=== PATIENT | female | born 2005 | race Two or more races ===

== ENCOUNTER 2025-04-02 11:17 | Outpatient (OUT) | payer OTHER, SELFPAY ==
[2025-04-02 11:53] LABS: Basophils Percent Auto 0.5 % (0.2-2.0); Eosinophils Absolute Auto 0.1 10^3/uL (0.0-0.7); Eosinophils Percent Auto 1.2 % (0.9-7.0); Hematocrit 40.6 % (36.0-48.0); Hemoglobin 13.8 g/dL (12.0-16.0); Immature Granulocytes Abs Auto 0.02 10^3/uL (0.00-0.03); Immature Granulocytes Pct Auto 0.3 % (0.0-0.5); Lymphocytes Absolute Auto 1.9 10^3/uL (1.2-3.8); Lymphocytes Percent Auto 28.9 % (20.5-60.0); Mean Corpuscular Hemoglobin 29.9 pg (26.7-34.0); Mean Corpuscular Volume 88.1 fL (81.0-99.0); Mean Platelet Volume 8.7 fL (9.5-13.5); Monocytes Absolute Auto 0.5 10^3/uL (0.3-0.8); Monocytes Percent Auto 7.2 % (1.7-12.0); Neutrophils Absolute Auto 4.1 10^3/uL (1.4-6.5); Neutrophils Percent Auto 61.9 % (43.0-75.0); Platelet Count 245 10^3/uL (150-450); Red Blood Count 4.61 10^6/uL (4.20-5.40); Red Cell Distribution Width 12.7 % (11.0-15.0); White Blood Count 6.6 10^3/uL (4.0-11.0)
[2025-04-02 11:54] LABS: BOX Test Reference Lab UNITY; BOX Test Sent Out UNITY
[2025-04-02 12:04] LABS: Amphetamine Screen Urine NEGATIVE (NEGATIVE); Barbiturates Screen Urine NEGATIVE (NEGATIVE); Benzodiazepines Screen Urine NEGATIVE (NEGATIVE); Buprenorphine Screen Urine NEGATIVE (NEGATIVE); Cannabinoid Screen Urine NEGATIVE (NEGATIVE); Cocaine Screen Urine NEGATIVE (NEGATIVE); Methadone Screen Urine NEGATIVE (NEGATIVE); Methamphetamines Screen Urine NEGATIVE (NEGATIVE); Opiate Screen Urine NEGATIVE (NEGATIVE); Oxycodone Screen Urine NEGATIVE (NEGATIVE); Phencyclidine Screen Urine NEGATIVE (NEGATIVE); Tricyclic Antidepressant Urine NEGATIVE (NEGATIVE)
[2025-04-02 12:13] LABS: Estimated Average Glucose 105 mg/dL; Glycohemoglobin A1C 5.3 % (4.5-6.2)
[2025-04-03 05:07] LABS: HIV Ab/p24 Ag Screen Non Reactive (Non Reactive)
[2025-04-03 06:08] LABS: HBsAg Screen Negative (Negative); HCV Ab Non Reactive (Non Reactive)
[2025-04-03 08:09] LABS: Rubella Antibodies, IgG 4.17 index (Immune >0.99)
[2025-04-03 11:08] LABS: Rapid Plasma Reagin, Quant Non Reactive titer (NonRea<1:1)
== END 2025-04-02 11:18 | disposition home or self-care (01) ==
LOC: LAB 11:25
PROVIDERS: PCP Obstetrics & Gynecology; Visit Provider Obstetrics & Gynecology
DX: Z34.01 Encounter for supervision of normal first pregnancy, first trimester (principal); Z36.0 Encounter for antenatal screening for chromosomal anomalies; N92.6 Irregular menstruation, unspecified
CPT/HCPCS: 36415; 80307; 83036; 85025; 86592; 86762; 86803; 86850; 86900; 86901; 87086; 87340; 87389

== ENCOUNTER 2025-05-18 20:04 | Outpatient (REF) | payer OTHER, SELFPAY ==
[2025-05-24 15:08] LABS: Age Gdln ACOG Testing Note (.); IGP, rfx Aptima HPV ASCU Note (.)
== END 2025-05-18 20:05 | disposition home or self-care (01) ==
LOC: LAB 20:04
PROVIDERS: Visit Provider Physician Assistant
DX: Z01.419 Encounter for gynecological examination (general) (routine) without abnormal findings (principal)
CPT/HCPCS: 88175

== ENCOUNTER 2025-08-11 14:09 | Outpatient (OUT) | payer OTHER, SELFPAY ==
--- NOTE | 2025-08-11 14:16 | US_ITS ---
The [address] [address] Patient Name: AYUSH MCCANN MRN: [id number] date: 2005 Sex: F Assigned Patient Location: Current Patient Location: Accession/Order Number: [id number] Exam Date: 08/11/2025 14:18 Report Date: 08/12/2025 09:12 At the request of: TC DE PAZ Procedure: US OB growth ULTRASOUND OB GROWTH COMPARISON: None CLINICAL DATA: Inconsistent size There is a single live intrauterine gestation in cephalic presentation. There is cardiac and somatic activity with heart rate of 144 bpm. The amniotic fluid index measures 16.7 cm which is in upper normal range. The placenta is posterior. The following measurements were obtained: Biparietal diameter 8.1 cm 32 weeks 2 days 84% Head circumference 29.7 cm 32 weeks 6 days 74% Abdominal circumference 25.8 cm 29 weeks 6 days 23% Femur length 5.6 cm 29 weeks 3 days 9%* The composite ultrasound age based on these measurements is 31 weeks 1 day +/- 2 weeks 1 day. The estimated date of delivery is October 12, 2025. The estimated weight is 3 lbs. 6 oz. +/- 8 ounces (22%). US/US OB growth IMPRESSION: SINGLE LIVE INTRAUTERINE GESTATION WITH ULTRASOUND AGE OF 31 WEEKS 1 DAY. BIOMETRICS, DESCRIBED. Impression dictated by: Bhargavi Russo M.D. 08/12/2025 9:12 AM Dictation Location: [place] [address] Electronically authenticated by: [id number] Y Date: 08/12/2025 09:12
== END 2025-08-11 14:10 | disposition home or self-care (01) ==
LOC: US 14:10
PROVIDERS: Visit Provider Nurse Practitioner Family
DX: O26.843 Uterine size-date discrepancy, third trimester (principal); Z3A.31 31 weeks gestation of pregnancy
CPT/HCPCS: 76816

== ENCOUNTER 2025-09-15 20:24 | Outpatient (REF) | payer OTHER, SELFPAY ==
--- OUTSIDE RECORDS SUMMARY | 2025-09-02 08:20 | XMS_ITS | Encounter Summary ---
Author Organization [facility] Address [address] [place] [address] Care Team Providers Care Big Machine Consultant Name Role Phone Renetta Poon MD Primary Care Provider [phone] Lilibeth Reyes BARRER AND TACKER Unavailable [phone] Reason for Visit * ReasonCommentsRoutine Visit Encounter Details DateTypeDepartmentCare Team (Latest Contact Info)Qrpwvsjuoez12/23/2025 9:20 AM EDTRoutine [facility] [address] [place] [address] Dayna Freed PA [address] [facility] [place] [address] 34 weeks gestation of ([facility]); Third trimester ([facility]); Gastroesophageal reflux in ([facility]) Social History Tobacco UseTypesPacks/DayYears UsedDateSmoking Tobacco: NeverSmokeless Tobacco: NeverAlcohol UseStandard Drinks/WeekCommentsNever0 (1 standard drink = 0.6 oz pure alcohol)AUDIT-CAnswerDate RecordedQ1: How often do you have a drink containing alcohol?Never03/18/2024Q2: How many drinks containing alcohol do you have on a typical day when you are drinking?Patient does not drink03/18/2024Q3: How often do you have six or more drinks on one occasion?Never03/18/2024HQ-2 AnswerDate RecordedPatient Health Questionnaire-2 Lvvbm925 Estimated Date of BfjaxbayRbegxyvyVyg43/04/2025Based on UltrasoundSex and Gender InformationValueDate RecordedSex Assigned at BirthNot on fileLegal SexFemale 01/23/2023 6:34 PM EDTGender IdentityNot on fileSexual OrientationNot on file documented as of this encounter Last Filed Vital Signs Vital SignReadingTime TakenCommentsBlood Pnybhexj145/6010 9:38 AM EDT Pulse--Temperature--Respiratory Rate--Oxygen Saturation--Inhaled Oxygen Concentration--Splmrv95.6 kg (149 lb 1.9 oz)09/02/2025 9:38 AM EDTHeight--Body Mass Index23.36003/18/2024 3:59 PM EDTdocumented in this encounter Progress Notes * LUCHO Escobedo - 09/02/2025 9:20 AM EDT Reason for Appointment: Patient ID: Teresita Brand is a 20 y.o. female who presents for Routine Visit Patient presents today for Return OB appointment. MEDICATIONS Current Outpatient Medications Medication Instructions omeprazole (PRILOSEC) 20 mg, Oral, Daily before breakfast, Do not crush or chew. MV-Min-Fe Fum-FA-DHA ( 1 PO) Take by mouth promethazine (PHENERGAN) 12.5 mg, Oral, Every 6 hours PRN, Take 1 tablet by mouth every 6 hours as needed for nausea. ALLERGIES Allergies Allergen Reactions Bee Venom Anaphylaxis and Swelling PROBLEMS Active Ambulatory Problems Diagnosis Date Noted Iron deficiency anemia during ([facility]) 11/03/2023 Irregular menses 11/26/2023 Chronic fatigue 03/18/2024 Hypokalemia 03/18/2024 Resolved Ambulatory Problems Diagnosis Date Noted Disorder of breast 11/26/2023 Low lying placenta nos or without hemorrhage, second trimester ([facility]) 09/19/2023 Short interval between pregnancies affecting in first trimester, antepartum ([facility]) 08/02/2023 28 weeks gestation of ([facility]) 11/06/2023 (normal spontaneous vaginal delivery) ([facility]) 01/22/2024 Threatened labor, third trimester ([facility]) 12/25/2023 Past Medical History: Diagnosis Date Anemia Disorder of breast, unspecified HISTORY PAST MEDICAL HISTORY SOCIAL HISTORY Past Medical History: Diagnosis Date 28 weeks gestation of ([facility]) 11/06/2023 Anemia Disorder of breast 11/26/2023 Disorder of breast, unspecified Irregular menses Low lying placenta nos or without hemorrhage, second trimester ([facility]) 09/19/2023 10/18/23 RESOLVED no further [facility] follow up 09/20/[address] [facility] [address] [place] RECOMMENDATION: 1. Anterior low-lying placenta seen on today's ultrasound. Patient denies any bleeding. 2. Pelvic rest advised. 3. Follow-up repeat evaluation of placental location between 32-34 weeks gestation at our [facility] remote office. 4. InCase (normal spontaneous vaginal delivery) ([facility]) 01/22/2024 Short interval between pregnancies affecting in first trimester, antepartum ([facility]) 08/02/2023 08/02/23 Her baby will be a year old the end of July 2022 Breast fed for 9 months Threatened labor, third trimester ([facility]) 12/25/2023 Celestone given 12/24/23 & 12/25/23 Social History Tobacco Use Smoking status: Never Smokeless tobacco: Never Vaping Use Vaping status: Never Used Substance Use Topics Alcohol use: Never Drug use: Not on file FAMILY HISTORY Family History Problem Relation Name Age of Onset Depression Mother Heart disease Father Hypertension Father Hypertension Maternal Grandfather Heart disease Maternal Grandfather SURGICAL HISTORY Past Surgical History: Procedure Laterality Date INNER EAR SURGERY ear tubes as a baby TYMPANOSTOMY TUBE PLACEMENT as a child REVIEW OF SYSTEMS Review of Systems: Review of Systems Constitutional: Negative. HENT: Negative. Eyes: Negative. Respiratory: Negative. Cardiovascular: Negative. Gastrointestinal: Negative. Genitourinary: Negative. Musculoskeletal: Negative. Skin: Negative. Neurological: Negative. All other systems reviewed and are negative. Hematological: Negative. Endocrine: Negative. Allergic/Immunologic: Negative. OBJECTIVE Objective: Physical Exam Constitutional: Appearance: Normal appearance. She is well-developed and normal weight. HENT: Head: Normocephalic. Cardiovascular: Rate and Rhythm: Normal rate and regular rhythm. Pulses: Normal pulses. Pulmonary: Effort: Pulmonary effort is normal. Breath sounds: Normal breath sounds. Abdominal: General: Bowel sounds are normal. There is no distension. Palpations: Abdomen is soft. Tenderness: There is no abdominal tenderness. There is no guarding or rebound. Musculoskeletal: General: No swelling. Normal range of motion. Right lower leg: No edema. Left lower leg: No edema. Neurological: General: No focal deficit present. Mental Status: She is alert and oriented to person, place, and time. Skin: General: Skin is warm and dry. Psychiatric: Mood and Affect: Mood normal. Behavior: Behavior normal. Thought Content: Thought content normal. Judgment: Judgment normal. Vitals and nursing note reviewed. Exam conducted with a inspecting supervisor present. Vitals: Estimated body mass index is 23.22 kg/m?? as calculated from the following: Height as of 03/18/24: 5' 7 . Weight as of 08/11/25: 148 lb 4 oz. BP: Patient's last menstrual period was 12/19/2024. Assessment/Plan ICD-10-CM 1. 34 weeks gestation of ([facility]) Z3A.34 POCT urinalysis dipstick manually resulted 2. Third trimester ([facility]) Z34.93 POCT urinalysis dipstick manually resulted 3. Gastroesophageal reflux in ([facility]) O99.619 K21.9 Return OB: Patient presents today for a routine obstetrics appointment. Patient is currently 34w0d . Patient states she is doing well but has complaints of being tired due to current . Patient has verbalizes frequent movement. labor precautions was discussed/given and patient was instructed to perform kick counts three times a day. Orders Placed This Encounter Procedures POCT urinalysis dipstick manually resulted Follow Up: Patient is to return to office in 2 week for routine OB appointment. Documented by Eve Lucas LPN on behalf of: LUCHO Escobedo documented in this encounter Plan of Treatment DateTypeDepartmentCare Team (Latest Contact Info)Keddeclkgek65/12/2025 9:40 AM ESTRoutine [facility] [address] [place] [address] Dayna Freed PA [address] [facility] [place] [address] 11/01/2025 10:50 AM ESTPostpartum Visit [facility] [address] [place] [address] Michael Robles DO [address] [facility] [place] [address] documented as of this encounter Procedures Procedure NamePriorityDate/TimeAssociated DiagnosisCommentsPOCT URINALYSIS NFNSTPLVJcawaxj18/23/2025 9:49 AM EDT 34 weeks gestation of ([facility]) Third trimester ([facility]) documented in this encounter Results * (ABNORMAL) POCT urinalysis dipstick manually resulted (09/02/2025 9:49 AM EDT) ComponentValueRef RangeTest MethodAnalysis TimePerformed AtPathologist SignatureColor, UAYellowClarity, UAClearGlucose, UANegativeNegative - 2000(110) ++++ mg/dLBilirubin, UANegativeNegative - 4(70) +++ mg/dLKetones, UA PositiveNegative - 160(16) ++++ mg/dLSpec Grav, UA1.0151 - 1.03Blood, UA NegativeNegative - 50 Jose/mcLpH, UA7.05 - 9Protein, UAPositiveNegative - 2000(20) ++++ mg/dLUrobilinogen, UA1.00.2 - 12 mg/dLLeukocytes, UAPositive Negative - 500+++ Farhan/mcLNitrite, UANegativeNegative - PositiveSpecimen (Source)Anatomical Location / LateralityCollection Method / VolumeCollection TimeReceived GvyuDtyxi16/23/2025 9:49 AM EDT Narrative Authorizing ProviderResult TypeResult StatusAmy Butler HospitalOINT OF CARE TEST ENTER/EDIT ORDERABLESFinal Result documented in this encounter Visit Diagnoses Diagnosis 34 weeks gestation of ([facility]) Third trimester ([facility]) state, incidental Gastroesophageal reflux in ([facility]) documented in this encounter Care Teams Team MemberRelationshipSpecialtyStart DateEnd Date Wonderly, Renetta Davidson MD [facility] - [facility] Lilibeth Reyes NP [address] [place] [address] PCP - [facility]08/11/24documented as of this encounter
--- OUTSIDE RECORDS SUMMARY | 2025-09-15 11:10 | XMS_ITS | Encounter Summary ---
Author Organization [facility] Address [address] [place] [address] Care Team Providers Care Machine Veneer Repairer Name Role Phone Renetta Poon MD Primary Care Provider [phone] Lilibeth Reyes CIRCUIT BREAKER SUPERVISOR Unavailable [phone] Reason for Visit * ReasonCommentsRoutine Visit Encounter Details DateTypeDepartmentCare Team (Latest Contact Info)Whtwqhcixbi48/05/2025 11:10 AM ESTRoutine [facility] [address] [facility] [address] Michael Robles DO [address] [place], [place] [id number] Third trimester ([facility]); 35 weeks gestation of ([facility]) Social History Tobacco UseTypesPacks/DayYears UsedDateSmoking Tobacco: NeverSmokeless [...] on one occasion?Never03/18/2024HQ-2 AnswerDate RecordedPatient Health Questionnaire-2 Ljeuk715 Estimated Date of EtxowysjQsqpijbsPbh34/04/2025ased on UltrasoundSex and Gender InformationValueDate RecordedSex Assigned at BirthNot on fileLegal SexFemale 01/23/2023 6:34 PM EDTGender IdentityNot on fileSexual OrientationNot on file documented as of this encounter Last Filed Vital Signs Vital SignReadingTime TakenCommentsBlood Bxehdlpx074/5809/15/2025 11:12 AM EST Pulse--Temperature--Respiratory Rate--Oxygen Saturation--Inhaled Oxygen Concentration--Ioqjit21.2 kg (157 lb)09/15/2025 11:12 AM ESTHeight--Body Mass Index24.59003/18/2024 3:59 PM EDTdocumented in this encounter Plan of Treatment DateTypeDepartmentCare Team (Latest Contact Info)Odmgtocigcl27/12/2025 9:40 AM ESTRoutine [facility] [address] [address] [place] [phone] Dayna Freed PA [address] [place], [place] [id number] 11/01/2025 10:50 AM ESTPostpartum Visit [facility] [address] [address] [place] [address] Michael Robles DO [address] [place], [place] [id number] NameTypePriorityAssociated DiagnosesOrder ScheduleCULTURE, GROUP B STREP WITH SUSCEPTIBLITYLabRoutine Third trimester ([facility]) Expected: 09/15/2025, Expires: 09/15/2026documented as of this encounter Procedures Procedure NamePriorityDate/TimeAssociated DiagnosisCommentsPOCT URINALYSIS QJRHMBFHNjoqjml24/05/2025 11:13 AM EST Third trimester ([facility]) documented in this encounter Results * (ABNORMAL) POCT urinalysis dipstick manually resulted (09/15/2025 11:13 AM EST)ComponentValueRef RangeTest MethodAnalysis TimePerformed AtPathologist SignatureColor, UAYellowClarity, UAClearGlucose, UANegativeNegative - 1999(110) ++++ mg/dLBilirubin, UANegativeNegative - 4(70) +++ mg/dLKetones, UA NegativeNegative - 160(16) ++++ mg/dLSpec Grav, UA1.0201 - 1.03Blood, UA NegativeNegative - 50 Jose/mcLpH, UA6.05 - 9Protein, UANegativeNegative - 2000(20) ++++ mg/dLUrobilinogen, UA1.00.2 - 12 mg/dLLeukocytes, UA2+Negative - 500+++ Farhan/mcLNitrite, UANegativeNegative - PositiveSpecimen (Source) Anatomical Location / LateralityCollection Method / VolumeCollection Time Received OgazIxlnb55/05/2025 11:13 AM EST Narrative Authorizing ProviderResult TypeResult StatusCorey Travis DOPOINT OF CARE TEST ENTER/EDIT ORDERABLESFinal Result documented in this encounter Visit Diagnoses Diagnosis Third trimester ([facility]) state, incidental 35 weeks gestation of ([facility]) documented in this encounter Care Teams Team MemberRelationshipSpecialtyStart DateEnd Date Renetta Poon MD PCP - GeneralFamily Medicine03/19/23 Lilibeth Reyes NP [address] [place] [address] PCP - [facility]08/11/24documented as of this encounter
--- OUTSIDE RECORDS SUMMARY | 2025-09-15 20:29 | XMS_ITS | Encounter Summary ---
Author Organization [facility] Address [address] [place] [address] Care Team Providers Care Intensive Care Unit Registered Nurse Name Role Phone CleveRenetta MD Primary Care Provider [phone] Lilibeth Reyes CHARGE ENTRY SPECIALIST Unavailable [phone] Encounter Details DateTypeDepartmentCare Team (Latest Contact Info)Caotqiomnkf21/23/2025amboo flowsheet [facility] [address] [facility] [place] [address] Dayna Freed PA [address] [facility] [address] [place], [facility] Social History Tobacco UseTypesPacks/DayYears UsedDateSmoking Tobacco: NeverSmokeless [...] on one occasion?Never03/18/2024HQ-2 AnswerDate RecordedPatient Health Questionnaire-2 Mvibm905 Estimated Date of KdevxudvXgnmwkzwAwo80/04/2025Based on UltrasoundSex and Gender InformationValueDate RecordedSex Assigned at BirthNot on fileLegal SexFemale 01/23/2023 6:34 PM EDTGender IdentityNot on fileSexual OrientationNot on file documented as of this encounter Plan of Treatment DateTypeDepartmentCare Team (Latest Contact Info)Hrbccpatoau05/10/2025 9:40 AM ESTRoutine [facility] [address] [facility] [place] [address] Dayna Freed PA [address] [facility] [place] [address] 11/01/2025 10:50 AM ESTPostpartum Visit [facility] [address] [facility] [place] [address] Michael Robles DO [address] [facility] [place] [address] documented as of this encounter Visit Diagnoses Not on filedocumented in this encounter Care Teams Team MemberRelationshipSpecialtyStart DateEnd Renetta Poon MD [facility] - [facility]23 Lilibeth Reyes NP [address] [place] [address] PCP - [facility]08/11/24documented as of this encounter
--- OUTSIDE RECORDS SUMMARY | 2025-09-15 20:29 | XMS_ITS | Clinical Summary ---
Author Organization [facility] Address [address], [address] [place] [address] Care Team Providers Care Channeler Outsole Name Role Phone Renetta Poon MD Primary Care Provider [phone] Allergies Active AllergyReactionsCriticalityNoted DateCommentsBee VenomAnaphylaxisHigh 11/06/2023 Medications MedicationSigDispense QuantityRefillsLast FilledStart DateEnd DateStatus doxyLAMINE succinate (GNP SLEEP AID) 25 MG tablet Take 1 tablet by mouth nightly 30 tablet 12/22/2021ctive Additional Information Patient not taking.Reported on 01/18/2025 vitamin B-6 (PYRIDOXINE) 50 MG tablet Take 1 tablet by mouth daily 30 tablet ctive Additional Information Patient not taking.Reported on 01/18/2025 MV-Min-Fe Fum-FA-DHA ( 1 PO) Take by mouthActive ferrous sulfate (IRON 325) 325 (65 Fe) MG tablet Take 1 tablet by mouth daily (with breakfast)Active Active Problems ProblemNoted DateDiagnosed Date28 weeks gestation of /27/2023 Encounters DateTypeDepartmentCare QtgnGraklhtrxjj78/19/2025 9:25 AM EDT - 06/29/2025 11:59 PM EDTHospital Encounter [facility] [address] [id number] Discharge Disposition: Home or Self Carefrom Last 3 Months Social History Tobacco UseTypesPacks/DayYears UsedDateSmoking Tobacco: NeverSmokeless Tobacco: NeverAlcohol UseStandard Drinks/WeekCommentsNever0 (1 standard drink = 0.6 oz pure alcohol)[facility] UtilitiesAnswerDate RecordedIn the past 12 months has the electric, gas, oil, or water company threatened to shut off services in your home?No01/18/2025UDIT-CAnswerDate RecordedQ1: How often do you have a drink containing alcohol?Never11/06/2023Q2: How many drinks containing alcohol do you have on a typical day when you are drinking?Patient does not drink11/06/2023Q3: How often do you have six or more drinks on one occasion?Never11/06/2023HQ-2 AnswerDate RecordedPHQ-9 Total Ojbbn655Hunger Vital SignAnswerDate RecordedWithin the past 12 months, you worried that your food would run out before you got the money to buymore.Never true01/18/2025Within the past 12 months, the food you bought just didn't last and you didn't have money to get more.Never true01/18/2025PRAPARE - TransportationAnswerDate RecordedIn the past 12 months, has lack of transportation kept you from medical appointments or from getting medications?No01/18/2025In the past 12 months, has lack of transportation kept you from meetings, work, or from getting things needed for daily living?No01/18/2025Housing Stability Vital SignAnswerDate RecordedIn the last 12 months, was there a time when you were not able to pay the mortgage or rent on time?No01/18/2025In the past 12 months, how many times have you moved where you were living?t any time in the past 12 months, were you homeless or living in a skilled nursing (including now)?No01/18/2025Food Insecurity AnswerDate RecordedWithin the past 12 months, you worried that your food would run out before you got the money to buymore.Within the past 12 months, the food you bought just didn't last and you didn't have money to get more.Interpersonal Safety Domain Source: IP Abuse ScreeningAnswerDate RecordedRead-Only, Retired: Physical HigbzAygtyh92/27/2023Read-Only, Retired: Verbal SlgopHkszuc59/27/2023Read-Only, Retired: Emotional otpzpSbetgq45/27/2023 Read-Only, Retired: Financial KvxdfUieqyt38/27/2023Read-Only, Retired: Sexual usegqUyngyu07/27/2023CommentsNoSex and Gender InformationValueDate RecordedSex Assigned at BirthNot on fileLegal OwmOrrzzp88/10/2022 8:12 PM EST Gender IdentityNot on fileSexual OrientationNot on file Last Filed Vital Signs Vital SignReadingTime TakenCommentsBlood Smqvipqd529/6603 10:35 AM EDT Zbnwc607811/06/2023 8:55 PM UEHEntkkcwigti31.9 ??C (98.4 ??F)11/06/2023 8:55 PM ESTRespiratory Zswt323711/06/2023 8:55 PM ESTOxygen Wziiyvbgoq09%11/06/2023 8:55 PM ESTInhaled Oxygen Concentration--Sqdonb40.8 kg (123 lb)01/18/2025 10:35 AM QGKXzmbod979.7 cm (5' 8 )01/18/2025 10:35 AM EDTBody Mass Index18.703 10:35 AM EDT Plan of Treatment Health MaintenanceDue DateLast DoneCommentsHIV kqvmpy4801/10/2019HPV vaccine (1 - 3-dose series)01/10/2019Chlamydia/GC aclpmh8001/11/2020Meningococcal B vaccine (1 of 2 - Standard)2020Hepatitis C rywqlc842Pap smear01/10/2025Flu vaccine (#1)06/11/2025OVID-19 Vaccine (1 - 2023- season)2025Depression Siyzlf786001/18/2025, 01/18/2025DTaP/Tdap/Td vaccine (8 - Td or Tdap) 3101/02/2023, 05/04/2022, 05/06/2019, Additional history existsHepatitis B vekhgelQsafuelad74/12/2005, 2004, 2004Hib vaccineCompleted 02/21/2005, 2004, 2004, Additional history existsPneumococcal 0-49 years VaccineAged Out02/21/2005, 2004, 2004, Additional history existsNo longer eligible based on patient's age to complete this topic Measles,Mumps,Rubella (MMR) vcwihrdZqdgezmnuapd43/26/2019, 02/21/2005 Meningococcal (ACWY) vaccineAged Out05/06/2019No longer eligible based on patient's age to complete this topicPolio rkygxdgKcgsjzhbp63/21/2019, 2004, 2004, Additional history existsVaricella vaccineCompleted 07/01/2019, 02/21/2005Hepatitis A vaccineAged OutNo longer eligible based on patient's age to complete this topic Procedures Procedure NamePriorityDate/TimeAssociated DiagnosisCommentsGLUCOSE CHALLENGE OWPZSQZTGLEZvowqrb72/19/2025 9:31 AM EDT PBEGksgsdi97/19/2025 9:31 AM EDT from Last 3 Months Results * Glucose Challenge Gestational (06/29/2025 9:31 AM EDT)ComponentValueRef Range Test MethodAnalysis TimePerformed AtPathologist SignatureGLU ADMNGluctoshia 06/29/2025 9:31 AM [facility] LABGlucose tolerance screen 25c8487 - 135 mg/dL06/29/2025 9:31 AM [facility] Specimen (Source)Anatomical Location / LateralityCollection Method / Volume Collection TimeReceived Time06/29/2025 9:31 AM EDT06/29/2025 9:32 AM EDT Narrative Authorizing ProviderResult TypeResult StatusCorey Kelechi Robles MDHEMATOLOGY ORDERABLESFinal ResultPerforming OrganizationAddressCity/State/ZIP CodePhone Number [facility] [address] [place] [address], [facility] [phone] * (ABNORMAL) CBC (06/29/2025 9:31 AM EDT)ComponentValueRef RangeTest Method Analysis TimePerformed AtPathologist SignatureWBC7.34.5 - 13.5 k/uL06/29/2025 9:31 AM [facility] LABRBC3.66(L)3.95 - 5.11 m/uL 06/29/2025 9:31 AM [facility] HBIVsprpvfyqm57.4(L)11.9 - 15.1 g/dL06/29/2025 9:31 AM [facility] MSIGnbjduckpw34.2 (L)36.3 - 47.1 %06/29/2025 9:31 AM [facility] WVLAJF69.4 82.6 - 102.9 fL06/29/2025 9:31 AM [facility] PRDVSO60.1 25.2 - 33.5 pg06/29/2025 9:31 AM [facility] NGPSZCV51.3 28.4 - 34.8 g/dL06/29/2025 9:31 AM [facility] TVCKBR94.6 11.8 - 14.4 %06/29/2025 9:31 AM [facility] LABPlatelets 195939 - 453 k/uL06/29/2025 9:31 AM [facility] LABMPV9.2 8.1 - 13.5 MS06/29/2025 9:31 AM [facility] LABNRBC Automated0.00.0 per 100 WBC06/29/2025 9:31 AM [facility] LABSpecimen (Source)Anatomical Location / LateralityCollection Method / Volume Collection TimeReceived Time06/29/2025 9:31 AM EDT06/29/2025 9:32 AM EDT Narrative Authorizing ProviderResult TypeResult StatusCorey Kelechi Robles MDHEMATOLOGY ORDERABLESFinal ResultPerforming OrganizationAddressCity/State/ZIP CodePhone Number [facility] [address] [id number] [phone] from Last 3 Months Insurance * Guarantor: Cristian MCCANN TypeRelation to PatientDate of BirthPhone Billing AddressPersonal/EondhvNxqkhe44/25/1976 [address] [address] * Guarantor: Cristian MCCANN TypeRelation to PatientDate of BirthPhone Billing AddressPersonal/JpuohkMikjrb[birth year][address] [address] Advance Directives * Full Code (Latest Code Status on File) Date ActivatedDate BtuhkkgvgpmJaaehfvw56/27/2023 9:13 PM11/06/2023 11:39 PM Care Teams Team MemberRelationshipSpecialtyStart DateEnd Date Renetta Poon MD [address] [place] [address] PCP - GeneralFamily Nqibdowc30/27/23
--- OUTSIDE RECORDS SUMMARY | 2025-09-15 20:29 | XMS_ITS | Encounter Summary ---
Author Organization [facility] Address [address] [place] [address] Care Team Providers Care Siphoner Name Role Phone CleveRenetta MD Primary Care Provider [phone] Lilibeth Reyes OUTSOLE CASER Unavailable [phone] Encounter Details DateTypeDepartmentCare Team (Latest Contact Info)Hvzcmwtuamu79/05/2025amboo flowsheet [facility] [address] [place] [address] Michael Robles DO [address] [place], [id number] Social History Tobacco UseTypesPacks/DayYears UsedDateSmoking Tobacco: NeverSmokeless [...] on one occasion?Never03/18/2024HQ-2 AnswerDate RecordedPatient Health Questionnaire-2 Ozmko594 Estimated Date of DjeehjjmNnftfonpOaa54/04/2025Based on UltrasoundSex and Gender InformationValueDate RecordedSex Assigned at BirthNot on fileLegal SexFemale 01/23/2023 6:34 PM EDTGender IdentityNot on fileSexual OrientationNot on file documented as of this encounter Plan of Treatment DateTypeDepartmentCare Team (Latest Contact Info)Lohwtgazopv55/12/2025 9:40 AM ESTRoutine [facility] [address] [place] [address] Dayna Freed PA [address] [place] [address] 11/01/2025 10:50 AM ESTPostpartum Visit [facility] [address] [place] [place] [address] Michael Robles DO [address] [place] [address] documented as of this encounter Visit Diagnoses Not on filedocumented in this encounter Care Teams Team MemberRelationshipSpecialtyStart DateEnd Date Wonderly, Renetta Davidson MD [facility] - [facility] Lilibeth Reyes NP [address] [place] [address] PCP - [facility]08/11/24documented as of this encounter
--- OUTSIDE RECORDS SUMMARY | 2025-09-15 20:29 | XMS_ITS ---
Author Organization [facility] Source Produ ction (ClinicalSummary Clone) Address Unknown Care Team Providers Care Crimper Assembler Name Role Phone Unavailable Primary Care Physician Unavailab le Results * [UNITY] ANEUPLOIDY NIPT Performed by: [facility] Component Value Range Date Fraction 7.3% 04/10/2025 04:23 am UTCRh(D) NIPTRhD TXOLXAVJ60/31/2025 04:23 am UTCSex Chromosome AneuploidyNOT RRHVRRIJ08/31/2025 04:23 am UTCMonosomy XLOW RISK <1 in , 04:23 am UTCTrisomy 13LOW RISK <1 in , 04:23 am UTCTrisomy 18LOW RISK <1 in , 04:23 am UTCTrisomy 21LOW RISK <1 in , 04:23 am UTCFetal VuoDHRZ3404/10/2025 04:23 am UTCPregnancy HlcylozudAGAMAPCLP28/31/2025 04:23 am UTCFor detailed report, see PDFSee PDF 04/10/2025 04:23 am UTC04/10/2025 04:23 am UTC Social History Observation Value Start Date End Date
--- OUTSIDE RECORDS SUMMARY | 2025-09-15 20:29 | XMS_ITS | Clinical Summary ---
Author Organization [facility] Address [address] [place] [address] Care Team Providers Care Retail Manager In Training Name Role Phone Renetta Poon MD Primary Care Provider Lilibeth Reyes SENIOR MECHANICAL DEVELOPMENT ENGINEER Unavailable [phone] Allergies Active AllergyReactionsCriticalityNoted DateCommentsBee VenomAnaphylaxis, AwqmixpoZveb97/04/2022Honey Bee VenomAnaphylaxis,AixfsnfqBvim45/04/2022 Medications MedicationSigDispense QuantityRefillsLast FilledStart DateEnd DateStatus MV-Min-Fe Fum-FA-DHA ( 1 PO) Take by mouthActive promethazine (Phenergan) 12.5 MG tablet Indications:14 weeks gestation of ([facility]),NauseaTake 1 tablet (12.5 mg) by mouth every 6 (six) hours if needed for nausea or vomiting for up to 30 d oses Take 1 tablet by mouth every 6 hours as needed for nausea. 30 tablet 5Active omeprazole (PriLOSEC) [address] capsule Indications:Gastroesophageal Reflux Disease,HeartburnTake 1 capsule (20 mg) by mouth in the morning. Take before meals. Do not crush or chew. 30 capsule 5Active Active Problems ProblemNoted DateDiagnosed DateChronic goveczy7403/18/20243992Okvvxdaebbu66/08/2024 Irregular zjaxfy9811/26/2023Iron deficiency anemia during ([facility]) 11/03/2023 Overview (11/22/2023): 11/03/23. Rx for PO Fe ordered. Reevaluate CBC in 4-6 weeks. Estimated Date of KayayxzfIralnnzdCqx31/04/2025Based on Ultrasound Resolved Problems ProblemNoted DateDiagnosed DateResolved DateNSVD (normal spontaneous vaginal delivery) ([facility])Threatened labor, third trimester ([facility])/06/2024 Overview (03/18/2024): Celestone given 12/24/23 & 12/25/23 Disorder of /8 weeks gestation of ([facility]) Low lying placenta nos or without hemorrhage, second trimester ([facility])/06/2024 Overview (11/26/2023): 10/18/23 RESOLVED no further [facility] follow up 09/20/23 [facility] Dr Machado RECOMMENDATION: 1. Anterior low-lying placenta seen on today's ultrasound. Patient denies any bleeding. 2. Pelvic rest advised. 3. Follow-up repeat evaluation of placental location between 32-34 weeks gestation at our [facility] remote office. 4. InCase low-lying placenta resolves term spontaneous vaginal delivery at her local hospital is anticipated. 5. InCase low-lying placenta does not resolved beyond 34 weeks gestation please offer primary her local hospital between 36-37 weeks. 6. A follow-up ultrasound and office visit was scheduled today. Short interval between pregnancies affecting in first trimester, antepartum ([facility])/06/2024 Overview (11/26/2023): 08/02/23 Her baby will be a year old the end of July 2022 Breast fed for 9 months Encounters DateTypeDepartmentCare EasxQzxokiogxuz11/05/2025 11:10 AM ESTRoutine [facility] [address] [place] [address] [place] [address] Magno Robles DO Third trimester ([facility]); 35 weeks gestation of ([facility])09/15/2025amboo flowsheet [facility] [address] [place] [address] Magno Robles DO 09/02/2025 9:20 AM EDTRoutine [facility] Delaney [facility] [place] [address] Dayna Freed PA 34 weeks gestation of ([facility]); Third trimester ([facility]); Gastroesophageal reflux in ([facility])09/02/2025amboo flowsheet [facility] RAIVN [address] [place] [address] Dayna Freed PA 08/26/2025Patient Outreach [facility] [place] [address] [place] [address] Dayna Go LPN 08/12/2025linisync Result Encounter [facility] External Department Unsolicited Dacia Madison NP 08/12/2025bstract [facility] Delaney [facility] [place] [address] Magno Robles DO 08/11/2025 2:50 PM EDTRoutine [facility] Delaney [facility] [place] [address] Dacia Madison NP 30 weeks gestation of ([facility]) (Primary Dx); Third trimester ([facility])08/11/2025amboo flowsheet [facility] [address] [place] [address] Dacia Madison NP 07/30/2025Patient Outreach [facility] [address] [place] [address] Dayna Go LPN 07/28/2025 11:20 AM EDTRoutine [facility] [address] [place] [address] Magno Robles DO size inconsistent with dates ([facility]) (Primary Dx); Third trimester ([facility]); 28 weeks gestation of ([facility])5Bamboo flowsheet [facility] [address] [place] [address] Magno Robles DO 07/15/2025bstract [facility] [address] [place] [address] Priscila Patten [place] 07/15/2025Telephone [facility] [address] [place] [address] Priscila Patten [place] 07/14/2025 8:50 AM EDTRoutine [facility] [address] [place] [address] Dayna Freed PA 26 weeks gestation of ([facility]); Second trimester ([facility]); Vaginal discharge; Exposure to STD; Gastroesophageal reflux in ([facility]); Ugzyfufsc47/03/2025Bamboo flowsheet [facility] [address] [place] [address] Dayna Freed PA 5Abstract [facility] [address] [place] [address] Dayna Go LPN 07/02/2025Patient Outreach [facility] [address] [place] [address] Dayna Go LPN 06/29/2025linisync Result Encounter [facility]OM[facility] External Department Unsolicited Magno Robles DO 06/17/2025 9:50 AM EDTRoutine [facility] [address] [facility] [facility] [place] [address] Magno Robles, Second trimester ([facility]); 23 weeks gestation of ([facility]); Diabetes mellitus zljakckti27/07/2025Bamboo flowsheet [facility] [address] [facility] [facility] [place] [address] Magno Robles, from Last 3 Months Immunizations ImmunizationAdministration DatesNext DueDTaP / Hep B / IPV2004DTaP, Qjjiyrkintf48/13/2005,2004,2004Hep B, Adolescent or Pediatric 2004,2004HiB, tsmepqgkdnu71/13/2005,2004,2004Hib (PRP-T) 2004IPV07/01/2019,2004,2004MMR05/06/2019,02/21/2005 Meningococcal WDR6H1305/06/2019Pneumococcal Conjugate PCV 7002/21/2005,2004, 2004,2004Tdap101/02/2023,05/04/2022,05/06/20190521Tvhtislak28/21/2019, 02/21/2005 Family History Medical HistoryRelationNameCommentsHeart diseaseFatherHypertensionFatherHeart diseaseMaternal GrandfatherHypertensionMaternal GrandfatherDepressionMother RelationNameStatusCommentsChildAliveFatherAliveMaternal GrandfatherMotherAlive Social History Tobacco UseTypesPacks/DayYears UsedDateSmoking Tobacco: NeverSmokeless Tobacco: Never Tobacco Cessation:Counseling Given: Not Answered Alcohol UseStandard Drinks/WeekCommentsNever0 (1 standard drink = 0.6 oz pure alcohol)AUDIT-CAnswerDate RecordedQ1: How often do you have a drink containing alcohol?Never03/18/2024Q2: How many drinks containing alcohol do you have on a typical day when you are drinking?Patient does not drink03/18/2024Q3: How often do you have six or more drinks on one occasion?Never03/18/2024HQ-2AnswerDate RecordedPatient Health Questionnaire-2 Rxydu939Estimated Date of KzjutdusRdrdpkfdPvg87/04/2025ased on UltrasoundSex and Gender InformationValue Date RecordedSex Assigned at BirthNot on fileLegal LwqWawlve82/15/2023 6:34 PM EDTGender IdentityNot on fileSexual OrientationNot on file Last Filed Vital Signs Vital SignReadingTime TakenCommentsBlood Jujgxxpe979/5811 11:12 AM EST Pikqr23866/28/2025 3:04 PM JAVPtdzbhyixlk61.3 ??C (102.8 ??F)12/08/2024 3:04 PM ESTRespiratory Rate--Oxygen Uhtqbmxdeo61%12/08/2024 3:04 PM ESTInhaled Oxygen Concentration--Odgoud96.2 kg (157 lb)09/15/2025 11:12 AM IKAOebzod131.2 cm (5' 7 )03/18/2024 3:59 PM EDTBody Mass Index24.59003/18/2024 3:59 PM EDT Plan of Treatment DateTypeDepartmentCare Team (Latest Contact Info)Fnyznyszkrm61/12/2025 9:40 AM ESTRoutine [facility] [address] [place] [address] [place] [address] Dayna Freed PA [address] [facility] [place] [address] 11/01/2025 10:50 AM ESTPostpartum Visit [facility] [address] [place] [address] Magno Robles DO [address] [facility] [place] [address] Health MaintenanceDue DateLast DoneCommentsCOVID-19 Vaccine ( season) 2025Influenza Vaccine (#1)2025Pneumococcal Vaccine: Pediatrics (0 to 5 Years) and At-Risk Patients (6 to 64 Years)Aged Out02/21/2005, 2004, 2004, Additional history existsNo longer eligible based on patient's age to complete this topic Procedures Procedure NamePriorityDate/TimeAssociated DiagnosisCommentsPOCT URINALYSIS GCFGSETWPepkdzs33/05/2025 11:13 AM EST Third trimester ([facility]) POCT URINALYSIS JCVTGOHBMsuxxwc75/23/2025 9:49 AM EDT 34 weeks gestation of ([facility]) Third trimester ([facility]) US OB CIZREH0908/12/2025 9:12 AM EDT POCT URINALYSIS GQAIGVFIGjhhnxm60/01/2025 2:48 PM EDT 30 weeks gestation of ([facility] POCT URINALYSIS LXBWSWYMUebskas34/17/2025 11:27 AM EDT Third trimester ([facility]) 28 weeks gestation of ([facility]) RECURRENT VAGINITIS (HTRX)Tkesnoe4707/14/2025 9:54 AM EDT POCT URINALYSIS VJHQDZCIPbftpup78/03/2025 8:56 AM EDT 26 weeks gestation of ([facility]) Second trimester ([facility] MHPT GLUCOSE FANNIE SCR 74HRuryfke03/19/2025 9:31 AM EDT ALL CBC WITH AUTO WLIIEvpixxa24/19/2025 9:31 AM EDT POCT URINALYSIS BJCBSCHBInuaadz04/07/2025 10:08 AM EDT Second trimester ([facility]) 23 weeks gestation of ([facility]) from Last 3 Months Results * (ABNORMAL) POCT urinalysis dipstick manually resulted (09/15/2025 11:13 AM EST) Only the most recent of6 resultswithin the time period is included. ComponentValueRef RangeTest MethodAnalysis TimePerformed AtPathologist Signature Color, UAYellowClarity, UAClearGlucose, UANegativeNegative - 2000(110) ++++ mg/dLBilirubin, UANegativeNegative - 4(70) +++ mg/dLKetones, UANegativeNegative - 160(16) ++++ mg/dLSpec Grav, UA1.0201 - 1.03Blood, UANegativeNegative - 50 Jose/mcLpH, UA6.05 - 9Protein, UANegativeNegative - 2000(20) ++++ mg/dL Urobilinogen, UA1.00.2 - 12 mg/dLLeukocytes, UA2+Negative - 500+++ Farhan/mcL Nitrite, UANegativeNegative - PositiveSpecimen (Source)Anatomical Location / LateralityCollection Method / VolumeCollection TimeReceived SkabAlhtd35/05/2025 11:13 AM EST Narrative Authorizing ProviderResult TypeResult StatusCorey Travis DOPOINT OF CARE TEST ENTER/EDIT ORDERABLESFinal Result * US OB GROWTH (08/12/2025 9:12 AM EDT)Anatomical RegionLateralityModalityOther Specimen (Source)Anatomical Location / LateralityCollection Method / Volume Collection TimeReceived Time08/12/2025 9:12 AM EDT Narrative 08/12/2025 9:15 AM EDT [facility] ?[address] ? [place] [address] ? Ultrasound Report ? Signed ? Patient: SIOBHANTERESITA Stewart ?MR#: [id number] ?? : 2005 ?Acct:[id number] ?? Age/Sex: 20 / F ?ADM Date: 08/11/25 ?? Loc: US ? Attending Dr: Dacia Madison ? Ordering Physician: Dacia Madison ?? Date of Service: 08/11/25 ?? Procedure(s): US OB growth ?? Accession Number(s): [id number] ? cc: Dacia Madison; Physician,Non-Staff M.D. ? [facility] ? [address] ? [place] [address] ? Patient Name: ?? TERESITA BRAND ? MRN: [facility]:[id number] ? date: 2005 ?Sex: F ?? Assigned Patient Location: US ?? Current Patient Location: ? Accession/Order Number: [id number] ?? Exam Date: 08/11/2025 ??14:18 ?Report Date: 08/12/2025 ??09:12 ? At the request of: ?? DACIA ??BALDEV ? Procedure: ??US OB growth ? ULTRASOUND OB GROWTH ? COMPARISON: None ? CLINICAL DATA: Inconsistent size ? There is a single live intrauterine gestation in cephalic presentation. ??There ?? is cardiac and somatic activity with heart rate of 144 bpm. ??The ?? amniotic fluid index measures 16.7 cm which is in upper normal range. ??The ?? placenta is posterior. ??The following measurements were obtained: ?? Biparietal diameter ?8.1 cm ?? 32 weeks 2 days ? 84% ?? Head circumference ?29.7 cm ?? 32 weeks 6 days ? 74% ?? Abdominal circumference ?? 25.8 cm ?? 29 weeks 6 days ? 23% ?? Femur length ? 5.6 cm ?? 29 weeks 3 days ? 9%* ?? The composite ultrasound age based on these measurements is 31 weeks 1 day +/- ?? 2 weeks 1 day. ??The estimated date of delivery is October 12, 2025. ??The ?? estimated weight is 3 lbs. 6 oz. +/- 8 ounces (22%). ? US/US OB growth ?? IMPRESSION: ? SINGLE LIVE INTRAUTERINE GESTATION WITH ULTRASOUND AGE OF 31 WEEKS 1 DAY. ? BIOMETRICS, DESCRIBED. ? Impression dictated by: Bhargavi Russo M.D. ??08/12/2025 9:12 AM ? Dictation Location: [place] [address] ? Electronically authenticated by: [id number] ??Y ?? Date: 08/12/2025 ??09:12 ? Dictated By: ?Bhargavi Russo M.D. ? Signed By: ?08/12/25 0915 ? DD/ 0912 ? TD/TT: ? [employer] Faculty: Procedure Note Radiology, Radiologist, - 08/12/2025 [place] [address] Ultrasound Report Signed Patient: TERESITA BRAND NMR#: [id number] : 2005Acct:[id number] Age/Sex: 20 / FADM Date: 08/11/25 Loc: US Attending Dr: Dacia Madison Ordering Physician: Dacia Madison Date of Service: 08/11/25 Procedure(s): US OB growth Accession Number(s): [id number] cc: Dacia Madison; Physician,Non-Staff M.Lee [facility] [place] [address] Patient Name: TERESITA BRAND MRN: [facility]:[id number] date: 2005 Sex: F Assigned Patient Location: Current Patient Location: Accession/Order Number: [id number] Exam Date: 08/11/2025 14:18 Report Date: 08/12/2025 09:12 At the request of: DACIA MADISON Procedure: US OB growth ULTRASOUND OB GROWTH COMPARISON: None CLINICAL DATA: Inconsistent size There is a single live intrauterine gestation in cephalic presentation.There is cardiac and somatic activity with heart rate of 144 bpm. The amniotic fluid index measures 16.7 cm which is in upper normal range. The placenta is posterior. The following measurements were obtained: Biparietal diameter 8.1 cm 32 weeks 2 days 84% Head circumference 29.7 cm 32 weeks 6 days 74% Abdominal circumference 25.8 cm 29 weeks 6 days 23% Femur length 5.6 cm 29 weeks 3 days 9%* The composite ultrasound age based on these measurements is 31 weeks 1 day+/- 2 weeks 1 day. The estimated date of delivery is October 12, 2025. The estimated weight is 3 lbs. 6 oz. +/- 8 ounces (22%). US/US OB growth IMPRESSION: SINGLE LIVE INTRAUTERINE GESTATION WITH ULTRASOUND AGE OF 31 WEEKS 1 DAY. BIOMETRICS, DESCRIBED. Impression dictated by: Bhargavi Russo M.D. 08/12/2025 9:12 AM Dictation Location: [place] [address] Electronically authenticated by: [id number] Y Date: 9:12 Dictated By: Bhargavi Russo M.D. Signed By:08/12/25914 DD/ 1 TD/TT: [employer] Faculty: Authorizing ProviderResult TypeResult StatusDacia Madison NPCLINISYNC IMAGING Final Result * (ABNORMAL) RECURRENT VAGINITIS (HTRX) (07/14/2025 9:54 AM EDT)ComponentValue Ref RangeTest MethodAnalysis TimePerformed AtPathologist SignatureATOPOBIUM FSFZZQP72.782(A)19.961 - 24.689 ppm07/15/2025 5:55 AM EDTHealthTrackRx at LabPortATOPOBIUM VAGINAEDetected(A)19.961 - 24.689 ppm07/15/2025 5:55 AM EDT [facility] at LabPortBVAB 2,3 (BACTERIAL VAGINOSIS ASSOCIATED BACTERIA 2, 3); MOBILUNCUS YBH090.961 - 24.689 ppm07/15/2025 5:55 AM EDTHealthTrackRx at LabPortBVAB 2,3 (BACTERIAL VAGINOSIS ASSOCIATED BACTERIA 2, 3); MOBILUNCUS SPP Not Mcjmppeg46.961 - 24.689 ppm07/15/2025 5:55 AM EDTHealthTrackRx at LabPort QUAN ALBICANS, PARAPSILOSIS, DDGHKJRLPC57.18(A)23.000 - 30.347 ppm 07/15/2025 5:55 AM EDTHealthTrackRx at LabPortCANDIDA ALBICANS, PARAPSILOSIS, TROPICALISDetected(A)23.000 - 30.347 ppm07/15/2025 5:55 AM EDTHealthTrackRx at LabPortCANDIDA DUSFJRYE659.000 - 31.618 ppm07/15/2025 5:55 AM EDTHealthTrackRx at LabPortCANDIDA GLABRATANot Vpinqwox20.000 - 31.618 ppm07/15/2025 5:55 AM EDTHealthTrackRx at LabPortCANDIDA VFFRNF824.000 - 30.873 ppm07/15/2025 5:55 AM EDTHealthTrackRx at LabPortCANDIDA KRUSEINot Tzgohuns47.000 - 30.873 ppm 07/15/2025 5:55 AM EDTHealthTrackRx at LabPortCHLAMYDIA QMUTVQQQXMP116.000 - 31.586 ppm07/15/2025 5:55 AM EDTHealthTrackRx at LabPortCHLAMYDIA TRACHOMATIS Not Vnozljpu94.000 - 31.586 ppm07/15/2025 5:55 AM EDTHealthTrackRx at LabPort GARDNERELLA AVYYLAXVU371.961 - 24.689 ppm07/15/2025 5:55 AM EDTHealthTrackRx at [facility] HospitalGARDNERELLA VAGINALISNot Owwhmors83.961 - 24.689 ppm07/15/2025 5:55 AM EDTHealthTrackRx at LabPortMEGASPHAERA (TYPES 1, 2)019.961 - 24.689 ppm 07/15/2025 5:55 AM EDTHealthTrackRx at LabSt. Vincent EvansvilleMEGASPHAERA (TYPES 1, 2)Not Nevjmjnk49.961 - 24.689 ppm07/15/2025 5:55 AM EDTHealthTrackRx at [facility] NEISSERIA JJTQUZMTYME554.000 - 32.587 ppm07/15/2025 5:55 AM EDTHealthTrackRx at [facility] HospitalNEISSERIA GONORRHOEAENot Kemsmxkw00.000 - 32.587 ppm07/15/2025 5:55 AM EDTHealthTrackRx at LabPortTRICHOMONAS XMGCVOHND062.000 - 31.995 ppm 07/15/2025 5:55 AM EDTHealthTrackRx at LabPortTRICHOMONAS VAGINALISNot Vajozbda15.000 - 31.995 ppm07/15/2025 5:55 AM EDTHealthTrackRx at [facility] MYCOPLASMA EKNFSIKPHE407.961 - 24.689 ppm07/15/2025 5:55 AM EDTHealthTrackRx at LabSt. Vincent EvansvilleMYCOPLASMA GENITALIUMNot Vfxcsnmd40.961 - 24.689 ppm07/15/2025 5:55 AM EDTHealthTrackRx at [facility] HospitalSpecimen (Source)Anatomical Location / LateralityCollection Method / VolumeCollection TimeReceived TimeTissue 07/14/2025 9:54 AM EDT07/15/2025 1:25 AM EDT Narrative Authorizing ProviderResult TypeResult StatusAmy Morrill RADHA BLOOD ORDERABLES Final ResultPerforming OrganizationAddressCity/State/ZIP CodePhone Number [facility] [address] [facility] [address] [place] [address] * MHPT GLUCOSE FANNIE SCR 50G (06/29/2025 9:31 AM EDT)ComponentValueRef RangeTest MethodAnalysis TimePerformed AtPathologist SignatureMHPT GLU ADMINISTERED VIA GlucolaMHPTMHPT GLUCOSE,FANNIE SCR 03Z8461 - 135 mg/dLMHPTSpecimen (Source) Anatomical Location / LateralityCollection Method / VolumeCollection Time Received Time06/29/2025 9:31 AM EDT06/29/2025 9:32 AM EDT Narrative [facility]NC - 06/29/2025 11:49 AM EDT Original Ordering Provider: MAGNO LITTLE Authorizing ProviderResult TypeResult StatusMagno Robles DOCLINISYNCFinal Result Performing OrganizationAddressCity/State/ZIP CodePhone Number [facility]NC MHPT * (ABNORMAL) ALL CBC WITH AUTO DIFF (06/29/2025 9:31 AM EDT)ComponentValueRef RangeTest MethodAnalysis TimePerformed AtPathologist SignatureMHPT WBC COUNT 7.34.5 - 13.5 k/uLMHPTMHPT RBC COUNT3.66(L)3.95 - 5.11 m/uLMHPTMHPT HEMOGLOBIN 11.4(L)11.9 - 15.1 g/dLMHPTMHPT CISSBZDXJM29.2(L)36.3 - 47.1 %MHPTMHPT MCV93.4 82.6 - 102.9 fLMHPTMHPT MCH31.125.2 - 33.5 pgMHPTMHPT MCHC33.328.4 - 34.8 g/dL MHPTMHPT RDW12.611.8 - 14.4 %MHPTMHPT PLATELET JTSBL621258 - 453 k/uLMHPTMHPT MPV9.28.1 - 13.5 fLMHPTMHPT NRBC AUTOMATED0.00.0 per 100 WBCMHPTSpecimen (Source)Anatomical Location / LateralityCollection Method / VolumeCollection TimeReceived Time06/29/2025 9:31 AM EDT06/29/2025 9:32 AM EDT Narrative [facility] - 06/29/2025 11:12 AM EDT Original Ordering Provider: MAGNO LITTLE Authorizing ProviderResult TypeResult StatusCorey Travis DOCLINISYNCFinal Result Performing OrganizationAddressCity/State/ZIP CodePhone Number [facility] MHPT from Last 3 Months Insurance Care Teams Team MemberRelationshipSpecialtyStart DateEnd Renetta Dey MD [facility] - [facility] Lilibeth Reyes NP [address] [place] [address] PCP - [facility]08/11/24
== END 2025-09-15 20:25 | disposition home or self-care (01) ==
LOC: LAB 20:24
PROVIDERS: Visit Provider Obstetrics & Gynecology
DX: Z34.93 Encounter for supervision of normal pregnancy, unspecified, third trimester (principal); Z3A.35 35 weeks gestation of pregnancy
CPT/HCPCS: 87081

== ENCOUNTER 2025-10-01 16:30 | Inpatient (IN) | payer OTHER, SELFPAY ==
--- OUTSIDE RECORDS SUMMARY | 2025-09-22 09:40 | XMS_ITS | Encounter Summary ---
Author Organization [facility] Address [address] [place] [address] Care Team Providers Care Size Maker Name Role Phone Renetta Poon MD Primary Care Provider [phone] Lilibeth Reyes DOUGH BRAKE MACHINE OPERATOR Unavailable [phone] Reason for Visit * ReasonCommentsRoutine Visit Encounter Details DateTypeDepartmentCare Team (Latest Contact Info)Iayawhlmwtg13/12/2025 9:40 AM ESTRoutine [facility] [address] [place] [address] Dayna Freed PA [address] [place], [place] [id number] 36 weeks gestation of ([facility]); Third trimester ([facility]); Gastroesophageal reflux in ([facility]) Social History Tobacco UseTypesPacks/DayYears UsedDateSmoking Tobacco: NeverSmokeless [...] on one occasion?Never03/18/2024HQ-2 AnswerDate RecordedPatient Health Questionnaire-2 Cixvs809 Estimated Date of UlswmszxUaepkfmsJve35/04/2025Based on UltrasoundSex and Gender InformationValueDate RecordedSex Assigned at BirthNot on fileLegal SexFemale 01/23/2023 6:34 PM EDTGender IdentityNot on fileSexual OrientationNot on file documented as of this encounter Last Filed Vital Signs Vital SignReadingTime TakenCommentsBlood Spaahgax852/6009/22/2025 9:28 AM EST Pulse--Temperature--Respiratory Rate--Oxygen Saturation--Inhaled Oxygen Concentration--Ttrdkf07 kg (158 lb 12.8 oz)09/22/2025 9:28 AM ESTHeight--Body Mass Index24.8703/18/2024 3:59 PM EDTdocumented in this encounter Progress Notes * LUCHO Escobedo - 09/22/2025 9:40 AM EST Reason for Appointment: Patient ID: Teresita Brand [...] Allergen Reactions Bee Venom Anaphylaxis and Swelling Honey Bee Venom Anaphylaxis and Swelling PROBLEMS Active Ambulatory Problems Diagnosis Date Noted Iron deficiency anemia during ([facility]) 11/03/2023 Irregular menses 11/26/2023 Chronic fatigue 03/18/2024 Hypokalemia 03/18/2024 Resolved Ambulatory Problems Diagnosis Date Noted Disorder of breast 11/26/2023 Low lying placenta nos or without hemorrhage, second trimester ([facility]) 09/19/2023 Short interval between pregnancies affecting in first trimester, antepartum ([facility]) 08/02/2023 28 weeks gestation of ([facility]) 11/06/2023 (normal spontaneous vaginal delivery) ([facility]) 01/22/2024 Threatened labor, third trimester ([facility]) 12/25/2023 Past Medical History: Diagnosis Date Anemia Disorder of breast, unspecified HISTORY PAST MEDICAL HISTORY SOCIAL HISTORY Past Medical History: Diagnosis Date 28 weeks gestation of ([facility]) 11/06/2023 Anemia Disorder of breast 11/26/2023 Disorder of breast, unspecified Irregular menses Low lying placenta nos or without hemorrhage, second trimester ([facility]) 09/19/2023 10/18/23 RESOLVED no further [facility] follow up 09/20/[address] [facility] [address] Machado RECOMMENDATION: 1. Anterior low-lying placenta seen on today's ultrasound. Patient denies any bleeding. 2. Pelvic rest advised. 3. Follow-up repeat evaluation of placental location between 32-34 weeks gestation at our [facility] remote office. 4. InCase (normal spontaneous vaginal delivery) ([facility]) 01/22/2024 Short interval between pregnancies affecting in first trimester, antepartum ([facility]) 08/02/2023 08/02/23 Her baby will be a year old the end of July 2022 Breast fed for 9 months Threatened labor, third trimester ([facility]) 12/25/2023 Celestone given 12/24/23 & 12/25/23 Social [...] SYSTEMS Review of Systems: Review of Systems All other systems reviewed and are negative. OBJECTIVE Objective: Physical Exam Constitutional: Appearance: Normal appearance. She is well-developed. Cardiovascular: Rate and Rhythm: Normal rate and regular rhythm. Pulmonary: Effort: Pulmonary effort is normal. Breath sounds: Normal breath sounds. Abdominal: General: Bowel sounds are normal. There is no distension. Palpations: Abdomen is soft. Tenderness: There is no abdominal tenderness. There is no guarding or rebound. Musculoskeletal: General: No swelling. Normal range of motion. Right lower leg: No edema. Left lower leg: No edema. Neurological: Mental Status: She is alert and oriented to person, place, and time. Skin: General: Skin is warm and dry. Psychiatric: Mood and Affect: Mood normal. Behavior: Behavior normal. Vitals and nursing note reviewed. Exam conducted with a boat patcher plastic present. Vitals: Estimated body mass index is 24.87 kg/m?? as calculated from the following: Height as of 03/18/24: 5' 7 . Weight as of this encounter: 158 lb 12.8 oz. BP: 110/60 Patient's last menstrual period was 12/19/2024. Assessment/Plan ICD-10-CM 1. 36 weeks gestation of ([facility]) Z3A.36 POCT urinalysis dipstick manually resulted 2. Third trimester ([facility]) Z34.93 POCT urinalysis dipstick manually resulted 3. Gastroesophageal reflux in ([facility]) O99.619 K21.9 Assessment/Plan Return OB: Patient presents today for a routine obstetrics appointment. Patient is currently 36w6d . Patient states she is doing well but has complaints of being tired due to current . Patient has verbalizes frequent movement. labor precautions was discussed/given and patient was instructed to perform kick counts three times a day. Orders Placed This Encounter Procedures POCT urinalysis dipstick manually resulted Follow Up: Patient is to return to office in 1 week for routine OB appointment. Documented by Eve Lucas LPN on behalf of: LUCHO Escobedo documented in this encounter Plan of Treatment DateTypeDepartmentCare Team (Latest Contact Info)Rsbpqlrkyub48/22/2025 10:50 AM ESTPostpartum Visit [facility] [address] [place] [address] Michael Robles DO [address] [place] [address] documented as of this encounter Procedures Procedure NamePriorityDate/TimeAssociated DiagnosisCommentsPOCT URINALYSIS ZDITWLNMBsfhiyy15/12/2025 9:35 AM EST 36 weeks gestation of ([facility]) Third trimester ([facility]) documented in this encounter Results * (ABNORMAL) POCT urinalysis dipstick manually resulted (09/22/2025 9:35 AM EST) ComponentValueRef RangeTest MethodAnalysis TimePerformed AtPathologist SignatureColor, UAAmberClarity, UAHazyGlucose, UANegativeNegative - 1999(110) ++++ mg/dLBilirubin, UANegativeNegative - 4(70) +++ mg/dLKetones, UANegative Negative - 160(16) ++++ mg/dLSpec Grav, UA1.0251 - 1.03Blood, UANegative Negative - 50 Jose/mcLpH, UA6.05 - 9Protein, UAPositiveNegative - 1999(20) ++++ mg/dLUrobilinogen, UA1.00.2 - 12 mg/dLLeukocytes, UAPositiveNegative - 500+++ Farhan/mcLNitrite, UANegativeNegative - PositiveSpecimen (Source)Anatomical Location / LateralityCollection Method / VolumeCollection TimeReceived Time Urine09/22/2025 9:35 AM EST Narrative Authorizing ProviderResult TypeResult StatusSentara Princess [facility] Hospital TEST ENTER/EDIT ORDERABLESFinal Result documented in this encounter Visit Diagnoses Diagnosis 36 weeks gestation of ([facility]) Third trimester ([facility]) state, incidental Gastroesophageal reflux in ([facility]) documented in this encounter Care Teams Team MemberRelationshipSpecialtyStart DateEnd Renetta Poon MD [facility] - [facility] Lilibeth Reyes NP [address] [place] [address] PCP - [facility]08/11/24documented as of this encounter
--- OUTSIDE RECORDS SUMMARY | 2025-09-22 09:40 | XMS_ITS | Encounter Summary ---
Author Organization [facility] Address [address] [place] [address] Care Team Providers Care Manager Regional Name Role Phone Renetta Poon MD Primary Care Provider [phone] Lilibeth Reyes EYEGLASS CUTTER Unavailable [phone] Reason for Visit * ReasonCommentsRoutine Visit Encounter Details DateTypeDepartmentCare Team (Latest Contact Info)Wngzasgazan84/12/2025 9:40 AM ESTRoutine [facility] [address] [place] [address] Dayna Freed PA [address] [place] [id number] 36 weeks gestation of ([facility]); Third trimester ([facility]); Gastroesophageal reflux in ([facility]) Social History Tobacco UseTypesPacks/DayYears UsedDateSmoking Tobacco: NeverSmokeless [...] on one occasion?Never03/18/2024HQ-2 AnswerDate RecordedPatient Health Questionnaire-2 Gmckb958 Estimated Date of NbbxzqrcBhiboiplMop51/04/2025Based on UltrasoundSex and Gender InformationValueDate RecordedSex Assigned at BirthNot on fileLegal SexFemale 01/23/2023 6:34 PM EDTGender IdentityNot on fileSexual OrientationNot on file documented as of this encounter Last Filed Vital Signs Vital SignReadingTime TakenCommentsBlood Tvyzcfgc095/6009/22/2025 9:28 AM EST Pulse--Temperature--Respiratory Rate--Oxygen Saturation--Inhaled Oxygen Concentration--Egjijr17 kg (158 lb 12.8 oz)09/22/2025 9:28 AM [...] Diagnosis Date Noted Iron deficiency anemia during ([facility]) 11/03/2023 Irregular menses 11/26/2023 Chronic fatigue 03/18/2024 Hypokalemia 03/18/2024 Resolved Ambulatory Problems Diagnosis Date Noted Disorder of breast 11/26/2023 Low lying placenta nos or without hemorrhage, second trimester ([facility]) 09/19/2023 Short interval between pregnancies affecting in first trimester, antepartum ([facility]) 08/02/2023 28 weeks gestation of ([facility]) 11/06/2023 (normal spontaneous vaginal delivery) ([facility]) 01/22/2024 Threatened labor, third trimester ([facility]) 12/25/2023 Past Medical History: Diagnosis Date Anemia Disorder of breast, unspecified HISTORY PAST MEDICAL HISTORY SOCIAL HISTORY Past Medical History: Diagnosis Date 28 weeks gestation of ([facility]) 11/06/2023 Anemia Disorder of breast 11/26/2023 Disorder of breast, unspecified Irregular menses Low lying placenta nos or without hemorrhage, second trimester ([facility]) 09/19/2023 10/18/23 RESOLVED no further [facility] follow up 09/20/[address] [facility] [address] Machado RECOMMENDATION: 1. Anterior low-lying placenta seen on today's ultrasound. Patient denies any bleeding. 2. Pelvic rest advised. 3. Follow-up repeat evaluation of placental location between 32-34 weeks gestation at our [facility] remote office. 4. InCase (normal spontaneous vaginal delivery) ([facility]) 01/22/2024 Short interval between pregnancies affecting in first trimester, antepartum ([facility]) 08/02/2023 08/02/23 Her baby will be a year old the end of July 2022 Breast fed for 9 months Threatened labor, third trimester ([facility]) 12/25/2023 Celestone given 12/24/23 & 12/25/23 Social [...] nursing note reviewed. Exam conducted with a perioperative assistant present. Vitals: Estimated body mass index is 24.87 kg/m?? as calculated from the following: Height as of 03/18/24: 5' 7 . Weight as of this encounter: 158 lb 12.8 oz. BP: 110/60 Patient's last menstrual period was 12/19/2024. Assessment/Plan ICD-10-CM 1. 36 weeks gestation of ([facility]) Z3A.36 POCT urinalysis dipstick manually resulted 2. Third trimester ([facility]) Z34.93 POCT urinalysis dipstick manually resulted 3. Gastroesophageal reflux in ([facility]) O99.619 K21.9 Assessment/Plan Return OB: Patient presents [...] Plan of Treatment DateTypeDepartmentCare Team (Latest Contact Info)Ovcusbfurft65/22/2025 10:50 AM ESTPostpartum Visit [facility] [address] [address] Michael Robles DO [address] [place] [address] documented as of this encounter Procedures Procedure NamePriorityDate/TimeAssociated DiagnosisCommentsPOCT URINALYSIS YZPTXOVFWobtpmh21/12/2025 9:35 AM EST 36 weeks gestation of ([facility]) Third trimester ([facility]) documented in this encounter Results * (ABNORMAL) [...] 9:35 AM EST Narrative Authorizing ProviderResult TypeResult StatusBon [facility] TEST ENTER/EDIT ORDERABLESFinal Result documented in this encounter Visit Diagnoses Diagnosis 36 weeks gestation of ([facility]) Third trimester ([facility]) state, incidental Gastroesophageal reflux in ([facility]) documented in this encounter Care Teams Team MemberRelationshipSpecialtyStart DateEnd Renetta Poon MD [facility] - [facility] Lilibeth Reyes NP [address] [place] [address] PCP - [facility]08/11/24documented as of this encounter
--- OUTSIDE RECORDS SUMMARY | 2025-09-29 10:50 | XMS_ITS | Encounter Summary ---
Author Organization [facility] Address [address] [place] [address] Care Team Providers Care Kick Press Operator Name Role Phone Renetta Poon MD Primary Care Provider [phone] Lilibeth Reyes TOW FEEDER Unavailable [phone] Reason for Visit * ReasonCommentsRoutine Visit Encounter Details DateTypeDepartmentCare Team (Latest Contact Info)Xnnfmwhxxym06/19/2025 10:50 AM ESTRoutine [facility] [address] [place] [address] Michael Robles DO [address] [place], [place] [phone] Third trimester ([facility]); 37 weeks gestation of ([facility]) Social History Tobacco UseTypesPacks/DayYears UsedDateSmoking Tobacco: NeverSmokeless [...] on one occasion?Never03/18/2024HQ-2 AnswerDate RecordedPatient Health Questionnaire-2 Xdqsp97111/27/2024 Estimated Date of PtlknjbwHbwubrldEtk14/04/2025ased on UltrasoundSex and Gender InformationValueDate RecordedSex Assigned at BirthNot on fileLegal SexFemale 01/23/2023 6:34 PM EDTGender IdentityNot on fileSexual OrientationNot on file documented as of this encounter Last Filed Vital Signs Vital SignReadingTime TakenCommentsBlood Tlzfjrwk159/6209/29/2025 10:55 AM EST Pulse--Temperature--Respiratory Rate--Oxygen Saturation--Inhaled Oxygen Concentration--Cescsn41.1 kg (159 lb)09/29/2025 10:55 AM ESTHeight--Body Mass Index24.905 3:59 PM EDTdocumented in this encounter Progress Notes * Shalonda Aden - 09/29/2025 10:50 AM EST Reason for Appointment: Patient ID: [...] Diagnosis Date Noted Iron deficiency anemia during ([facility]) 11/03/2023 Irregular menses 11/26/2023 Chronic fatigue 03/18/2024 Hypokalemia 03/18/2024 Resolved Ambulatory Problems Diagnosis Date Noted Disorder of breast 11/26/2023 Low lying placenta nos or without hemorrhage, second trimester ([facility]) 09/19/2023 Short interval between pregnancies affecting in first trimester, antepartum ([facility]) 08/02/2023 28 weeks gestation of ([facility]) 11/06/2023 (normal spontaneous vaginal delivery) ([facility]) 01/22/2024 Threatened labor, third trimester ([facility]) 12/25/2023 Past Medical History: Diagnosis Date Anemia Disorder of breast, unspecified HISTORY PAST MEDICAL HISTORY SOCIAL HISTORY Past Medical History: Diagnosis Date 28 weeks gestation of ([facility]) 11/06/2023 Anemia Disorder of breast 11/26/2023 Disorder of breast, unspecified Irregular menses Low lying placenta nos or without hemorrhage, second trimester ([facility]) 09/19/2023 10/18/23 RESOLVED no further [facility] follow up 09/20/[address] [facility] [address] Machado RECOMMENDATION: 1. Anterior low-lying placenta seen on today's ultrasound. Patient denies any bleeding. 2. Pelvic rest advised. 3. Follow-up repeat evaluation of placental location between 32-34 weeks gestation at our [facility] remote office. 4. InCase (normal spontaneous vaginal delivery) ([facility]) 01/22/2024 Short interval between pregnancies affecting in first trimester, antepartum ([facility]) 08/02/2023 08/02/23 Her baby will be a year old the end of July 2022 Breast fed for 9 months Threatened labor, third trimester ([facility]) 12/25/2023 Celestone given 12/24/23 & 12/25/23 Social [...] Constitutional: Appearance: Normal appearance. She is well-developed. Genitourinary: Vulva normal. Cardiovascular: Rate and Rhythm: Normal rate and [...] nursing note reviewed. Exam conducted with a slab lifting engineer present. Vitals: Estimated body mass index is 24.87 kg/m?? as calculated from the following: Height as of 03/18/24: 5' 7 . Weight as of 09/22/25: 158 lb 12.8 oz. BP: Patient's last menstrual period was 12/19/2024. ASSESSMENT & PLAN ICD-10-CM 1. Third trimester ([facility]) Z34.93 2. 37 weeks gestation of ([facility]) Z3A.37 POCT urinalysis dipstick manually resulted Assessment/Plan Return OB: Patient presents today for a routine obstetrics appointment. Patient is currently 37w6d . Patient states she is doing well but has complaints of being tired due to current . Patient has verbalizes frequent movement. labor precautions was discussed/given and patient was instructed to perform kick counts three times a day. Pt to be induced 10/05/25, pt to be at [facility] on 10/04/25 at 2300. Orders Placed This Encounter Procedures POCT urinalysis dipstick manually resulted Follow Up: Patient is to return to office in 1 week for routine OB appointment. Documented by Shalonda Aden CST on behalf of: Michael Robles DO documented in this encounter Plan of Treatment DateTypeDepartmentCare Team (Latest Contact Info)Efjhsvqroni98/22/2025 10:50 AM ESTPostpartum Visit [facility] [address] [address] Michael Robles DO [address] [place], [place] [phone] documented as of this encounter Procedures Procedure NamePriorityDate/TimeAssociated DiagnosisCommentsPOCT URINALYSIS KELHCDTBEcsyiud85/19/2025 10:56 AM EST 37 weeks gestation of ([facility]) documented in this encounter Results * (ABNORMAL) POCT urinalysis dipstick manually resulted (09/29/2025 10:56 AM EST)ComponentValueRef RangeTest MethodAnalysis TimePerformed AtPathologist SignatureColor, UAYellowClarity, UAClearGlucose, UANegativeNegative - 2000(110) ++++ mg/dLBilirubin, UANegativeNegative - 4(70) +++ mg/dLKetones, UA NegativeNegative - 160(16) ++++ mg/dLSpec Grav, UA1.0151 - 1.03Blood, UA NegativeNegative - 50 Jose/mcLpH, UA7.05 - 9Protein, UANegativeNegative - 2000(20) ++++ mg/dLUrobilinogen, UA1.00.2 - 12 mg/dLLeukocytes, UA2+Negative - 500+++ Farhan/mcLNitrite, UANegativeNegative - PositiveSpecimen (Source) Anatomical Location / LateralityCollection Method / VolumeCollection Time Received EsmaGbfgs60/19/2025 10:56 AM EST Narrative Authorizing ProviderResult TypeResult StatusCorey Travis DOPOINT OF CARE TEST ENTER/EDIT ORDERABLESFinal Result documented in this encounter Visit Diagnoses Diagnosis Third trimester ([facility]) state, incidental 37 weeks gestation of ([facility]) documented in this encounter Care Teams Team MemberRelationshipSpecialtyStart DateEnd Renetta Dey MD PCP - GeneralF[facility] Medicine03/19/23 Lilibeth Reyes NP [address] [place] [address] PCP - [facility]08/11/24documented as of this encounter
--- OUTSIDE RECORDS SUMMARY | 2025-09-29 10:50 | XMS_ITS | Encounter Summary ---
Author Organization [facility] Address [address] [place] [address] Care Team Providers Care Word Processing Specialist Name Role Phone Renetta Poon MD Primary Care Provider [phone] Lilibeth Reyes BROOM BUNDLER Unavailable [phone] Reason for Visit * ReasonCommentsRoutine Visit Encounter Details DateTypeDepartmentCare Team (Latest Contact Info)Lvvfjccvqud15/19/2025 10:50 AM ESTRoutine [facility] [address] [address] Michael Robles DO [address] [place], [place] [phone] Third trimester ([facility]); 37 weeks gestation of ([facility]) Social History Tobacco UseTypesPacks/DayYears UsedDateSmoking Tobacco: [...] on one occasion?Never03/18/2024HQ-2 AnswerDate RecordedPatient Health Questionnaire-2 Gspfm51211/27/2024 Estimated Date of SjfbkxzxQjwazkhfLot34/04/2025ased on UltrasoundSex and Gender InformationValueDate RecordedSex Assigned at BirthNot on fileLegal SexFemale 01/23/2023 6:34 PM EDTGender IdentityNot on fileSexual OrientationNot on file documented as of this encounter Last Filed Vital Signs Vital SignReadingTime TakenCommentsBlood Pggyppwd452/6209/29/2025 10:55 AM EST Pulse--Temperature--Respiratory Rate--Oxygen Saturation--Inhaled Oxygen Concentration--Raosgj60.1 kg (159 lb)09/29/2025 10:55 AM ESTHeight--Body Mass Index24.9003/18/2024 3:59 PM EDTdocumented in this encounter Plan of Treatment DateTypeDepartmentCare Team (Latest Contact Info)Fsejuglawqa37/22/2025 10:50 AM ESTPostpartum Visit [facility] [address] [place] [address] Michael Robles DO [address] [place] [address] documented as of this encounter Procedures Procedure NamePriorityDate/TimeAssociated DiagnosisCommentsPOCT URINALYSIS DCFKGVSMXwvhabt54/19/2025 10:56 AM EST 37 weeks gestation of ([facility] documented in this encounter Results * (ABNORMAL) [...] / LateralityCollection Method / VolumeCollection Time Received KfioHzgkz51/19/2025 10:56 AM EST Narrative Authorizing ProviderResult TypeResult StatusCorey Travis DOPOINT OF CARE TEST ENTER/EDIT ORDERABLESFinal Result documented in this encounter Visit Diagnoses Diagnosis Third trimester ([facility]) state, incidental 37 weeks gestation of ([facility] documented in this encounter Care Teams Team MemberRelationshipSpecialtyStart DateEnd Date Renetta Poon MD PCP - GeneralFami Medicine03/19/23 Lilibeth Reyes NP [address] [place] [address] PCP - [facility]08/11/24documented as of this encounter
--- OUTSIDE RECORDS SUMMARY | 2025-10-01 16:36 | XMS_ITS | Clinical Summary ---
Author Organization [facility] Address [address] [place] [address] Care Team Providers Care Quality Officer Name Role Phone Renetta Poon MD Primary Care Provider [phone] Lilibeth Reyes BANK GUARD Unavailable [phone] Allergies Active AllergyReactionsCriticalityNoted DateCommentsBee VenomAnaphylaxis, SlxjjjllGcyj11/04/2022Honey Bee VenomAnaphylaxis,IblfxhmuIfsd08/04/2022 Medications MedicationSigDispense QuantityRefillsLast FilledStart DateEnd DateStatus MV-Min-Fe Fum-FA-DHA ( 1 PO) Take by mouthActive promethazine (Phenergan) 12.5 MG tablet Indications:14 weeks gestation of ([facility]),NauseaTake 1 tablet (12.5 mg) by mouth every [...] capsule 5Active Active Problems ProblemNoted DateDiagnosed DateChronic zdfuufg0603/18/20247891Vvjbzucflxx62/08/2024 Irregular iixaro0811/26/2023Iron deficiency anemia during ([facility]) 11/03/2023 Overview (11/22/2023): 11/03/23. Rx for PO Fe ordered. Reevaluate CBC in 4-6 weeks. Estimated Date of HmrjeyjuDliecawpRid35/04/2025Based on Ultrasound Resolved Problems ProblemNoted DateDiagnosed DateResolved DateNSVD (normal spontaneous vaginal delivery) ([facility])Threatened labor, third trimester ([facility])/06/2024 Overview (03/18/2024): Celestone given 12/24/23 & 12/25/23 Disorder of /8 weeks gestation of ([facility]) Low lying placenta nos or without hemorrhage, second trimester ([facility])/06/2024 Overview (11/26/2023): 10/18/23 RESOLVED no further [facility] follow up 09/20/[address] [facility] [address] Machado RECOMMENDATION: 1. Anterior low-lying placenta seen on today's ultrasound. Patient denies any bleeding. 2. Pelvic rest advised. 3. Follow-up repeat evaluation of placental location between 32-34 weeks gestation at our [facility] remote office. 4. InCase low-lying placenta resolves term spontaneous vaginal delivery at her local hospital is anticipated. 5. InCase low-lying placenta does not resolved beyond 34 weeks gestation please offer primary her local hospital between 36-37 weeks. 6. A follow-up ultrasound and office visit was scheduled today. Short interval between pregnancies affecting in first trimester, antepartum ([facility])/06/2024 Overview (11/26/2023): 08/02/23 Her baby will be a year old the end of July 2022 Breast fed for 9 months Encounters DateTypeDepartmentCare WklkEsumwjqdzau54/19/2025 10:50 AM ESTRoutine [facility] [address] [place] [address] [place] [address] Michael Robles, DO Third trimester ([facility]); 37 weeks gestation of ([facility])5Abstract [facility] RAVIN Rhett [facility] [place] [address] Michael Robles, DO 5Bamboo flowsheet [facility] [address] [facility] [place] [address] Michael Robles, DO 09/27/2025Patient Outreach [facility] [address] [place] [address] Dayna Go LPN 09/22/2025 9:40 AM ESTRoutine [facility] Delaney [facility] [place] [address] Dayna Freed PA 36 weeks gestation of ([facility]); Third trimester ([facility]); Gastroesophageal reflux in ([facility])5Bamboo flowsheet [facility] [address] [facility] [place] [address] Dayna Freed PA 09/15/2025 11:10 AM ESTRoutine [facility] RAVIN [address] [facility] [place] [address] Michael Robles, Third trimester ([facility]); 35 weeks gestation of ([facility])5Clinisync Result Encounter [facility] External Department Unsolicited Michael Robles, DO 5Bamboo flowsheet [facility] [address] [facility] [place] [address] Michael Robles, DO 09/02/2025 9:20 AM EDTRoutine [facility] [address] [facility] [place] [address] Dayna Fered PA 34 weeks gestation of ([facility]); Third trimester ([facility]); Gastroesophageal reflux in ([facility])09/02/2025amboo flowsheet [facility] [place] [address] Dayna Freed PA 08/26/2025Patient Outreach [facility] [address] [place] [address] Dayna Go LPN 08/12/2025linisync Result Encounter [facility] External Department Unsolicited Dacia Madison NP 08/12/2025bstract [facility] RAVIN [place] [address] Michael Robles DO 08/11/2025 2:50 PM EDTRoutine [facility] [place] [address] Dacia Madison NP 30 weeks gestation of ([facility]) (Primary Dx); Third trimester ([facility])08/11/2025amboo flowsheet [facility] Delaney [facility] [place] [address] Dacia Madison NP 07/30/2025Patient Outreach [facility] [address] [place] [address] Dayna Go LPN 07/28/2025 11:20 AM EDTRoutine [facility] RAVIN [address] [place] [address] Michael Robles DO size inconsistent with dates ([facility]) (Primary Dx); Third trimester ([facility]); 28 weeks gestation of ([facility])5Bamboo flowsheet [facility] [address] [facility] [place] [address] Michael Robles DO 07/15/2025bstract [facility] [address] [facility] [place] [address] Priscila Patten MA 07/15/2025Telephone [facility] [address] [facility] [place] [address] Priscila Patten MA 07/14/2025 8:50 AM EDTRoutine [facility] OBLILYN [address] [place] [address] [place] [address] Dayna Freed PA 26 weeks gestation of ([facility]); Second trimester ([facility]); Vaginal discharge; Exposure to STD; Gastroesophageal reflux in ([facility]); Vamxafykp44/03/2025amboo flowsheet [facility] [address] [place] [address] [place] [address] Dayna Freed PA 07/08/2025bstract [facility] [address] [place] [address] Dayna Go LPN 07/02/2025Patient Outreach [facility] [address] [place] [address] Dayna Go LPN from Last 3 Months Immunizations ImmunizationAdministration DatesNext DueDTaP / Hep B / IPV2004DTaP, Tbmzuwuwqri66/13/2005,2004,2004Hep B, Adolescent or Pediatric 2004,2004HiB, rpyewndgiec85/13/2005,2004,2004Hib (PRP-T) 2004IPV07/01/2019,2004,2004MMR05/06/2019,02/21/2005 Meningococcal EGM5Q5305/06/2019Pneumococcal Conjugate PCV 7002/21/2005,2004, 2004,2004Tdap101/02/2023,05/04/2022,05/06/20193348Jxjvesgpq92/21/2019, 02/21/2005 Family History Medical HistoryRelationNameCommentsHeart diseaseFatherHypertensionFatherHeart diseaseMaternal [...] drinks on one occasion?Never03/18/2024HQ-2AnswerDate RecordedPatient Health Questionnaire-2 Gorcm75411/27/2024Estimated Date of JtpdhwgxObehstfsDfs38/04/2025ased on UltrasoundSex and Gender InformationValue Date RecordedSex Assigned at BirthNot on fileLegal BwqSctwtq39/15/2023 6:34 PM EDTGender IdentityNot on fileSexual OrientationNot on file Last Filed Vital Signs Vital SignReadingTime TakenCommentsBlood Koeonxhm070/6211 10:55 AM EST Cahyh94008/28/2025 3:04 PM EHBHobpajibbml05.3 ??C (102.8 ??F)12/08/2024 3:04 PM ESTRespiratory Rate--Oxygen Pntyzzorfe47%12/08/2024 3:04 PM ESTInhaled Oxygen Concentration--Vmmvqz49.1 kg (159 lb)09/29/2025 10:55 AM FJINxsxvr660.2 cm (5' 7 )03/18/2024 3:59 PM EDTBody Mass Index24.9003/18/2024 3:59 PM EDT Plan of Treatment DateTypeDepartmentCare Team (Latest Contact Info)Uokgatpciax74/22/2025 10:50 AM ESTPostpartum Visit [facility] [address] [facility] [place] [address] Michael Robles DO [address] [facility] [place] [address] Health MaintenanceDue DateLast DoneCommentsCOVID-19 Vaccine (2023- season) 2025Influenza Vaccine (#1)2025Pneumococcal Vaccine: Pediatrics (0 to 5 Years) and At-Risk Patients (6 to 64 Years)Aged Out02/21/2005, 2004, 2004, Additional history existsNo longer eligible based on patient's age to complete this topic Procedures Procedure NamePriorityDate/TimeAssociated DiagnosisCommentsPOCT URINALYSIS VGTOGRUIFksnhji37/19/2025 10:56 AM EST 37 weeks gestation of ([facility]) POCT URINALYSIS NBZNZOXICeqazpv04/12/2025 9:35 AM EST 36 weeks gestation of ([facility]) Third trimester ([facility]) POCT URINALYSIS WPTZIJGKLvhylmd12/05/2025 11:13 AM EST Third trimester ([facility]) ORGANISM TDZLTJVTNUSXKRDuxlqbv50/05/2025 11:01 AM EST STREP GP B CULTURE+OFPPMjuvoto17/05/2025 11:01 AM EST POCT URINALYSIS PZTTZCQVHcmothl87/23/2025 9:49 AM EDT 34 weeks gestation of ([facility]) Third trimester ([facility]) US OB DZMEBT0808/12/2025 9:12 AM EDT POCT URINALYSIS XLEDQNBVFmsysyd06/01/2025 2:48 PM EDT 30 weeks gestation of ([facility]) POCT URINALYSIS AZCUHKLKCmbbcmv03/17/2025 11:27 AM EDT Third trimester ([facility]) 28 weeks gestation of ([facility]) RECURRENT VAGINITIS (HTRX)Jcylcso3907/14/2025 9:54 AM EDT POCT URINALYSIS BNSJYGZLKnfkxlu91/03/2025 8:56 AM EDT 26 weeks gestation of ([facility]) Second trimester ([facility]) from Last 3 Months Results * (ABNORMAL) POCT urinalysis dipstick manually resulted (09/29/2025 10:56 AM EST) Only the most recent of7 resultswithin the time period is included. ComponentValueRef RangeTest MethodAnalysis TimePerformed AtPathologist Signature Color, UAYellowClarity, UAClearGlucose, UANegativeNegative - 2000(110) ++++ mg/dLBilirubin, UANegativeNegative - 4(70) +++ mg/dLKetones, UANegativeNegative - 160(16) ++++ mg/dLSpec Grav, UA1.0151 - 1.03Blood, UANegativeNegative - 50 Jose/mcLpH, UA7.05 - 9Protein, UANegativeNegative - 2000(20) ++++ mg/dL Urobilinogen, UA1.00.2 - 12 mg/dLLeukocytes, UA2+Negative - 500+++ Farhan/mcL Nitrite, UANegativeNegative - PositiveSpecimen (Source)Anatomical Location / LateralityCollection Method / VolumeCollection TimeReceived TqofSntbl21/19/2025 10:56 AM EST Narrative Authorizing ProviderResult TypeResult StatusCorey Travis DOPOINT OF CARE TEST ENTER/EDIT ORDERABLESFinal Result * ORGANISM IDENTIFICATION (09/15/2025 11:01 AM EST)ComponentValueRef RangeTest MethodAnalysis TimePerformed AtPathologist SignatureORGANISM IDENTIFICATION ??Organism Identification WILL FOLLOW TBHSpecimen (Source)Anatomical Location / LateralityCollection Method / Volume Collection TimeReceived Time09/15/2025 11:01 AM EST09/15/2025 9:04 PM EST Narrative [facility] - 09/21/2025 11:08 AM EST Authorizing ProviderResult TypeResult StatusCorey Travis MAHER BLOOD ORDERABLES Final ResultPerforming OrganizationAddressCity/State/ZIP CodePhone Number [facility] * STREP GP B CULTURE+RFLX (09/15/2025 11:01 AM EST)ComponentValueRef RangeTest MethodAnalysis TimePerformed AtPathologist SignatureSTREP GP B CULTURE+RFLX ??Strep Gp B Culture+Rflx TBHSTREP GP B CULTURE+RFLX*ABNORMAL*TBHSTREP GP B CULTURE+RFLXPositiveTBHSTREP GP B CULTURE+RFLXCenters for Disease Control and Prevention (CDC) andTBHSTREP GP B CULTURE+RFLXAmerican Congress of Obstetricians and GynecologistsTBHSTREP GP B CULTURE+RFLX(ACOG) guidelines for prevention of group BTBHSTREP GP B CULTURE+RFLXstreptococcal (GBS) disease specify co-collection ofTBHSTREP GP B CULTURE+RFLXa vaginal and rectal swab specimen to maximizeTBHSTREP GP B CULTURE+RFLXsensitivity of GBS detection. Per the CDC and ACOG,TBHSTREP GP B CULTURE+RFLXswabbing both the lower vagina and rectumTBHSTREP GP B CULTURE+RFLX substantially increases the yield of detectionTBHSTREP GP B CULTURE+RFLXcompared with sampling the vagina alone.TBHSTREP GP B CULTURE+RFLXPenicillin G, ampicillin, or cefazolin are indicatedTBHSTREP GP B CULTURE+RFLXfor intrapartum prophylaxis of GBSTBHSTREP GP B CULTURE+RFLXcolonization. Reflex susceptibility testing should beTBHSTREP GP B CULTURE+RFLXperformed prior to use of clindamycin only on GBSTBHSTREP GP B CULTURE+RFLXisolates from penicillin- allergic women who areTBHSTREP GP B CULTURE+RFLXconsidered a high risk for anaphylaxis. Treatment withTBHSTREP GP B CULTURE+RFLXvancomycin without additional testing is warranted ifTBHSTREP GP B CULTURE+RFLXresistance to clindamycin is noted.TBHSpecimen (Source)Anatomical Location / Laterality Collection Method / VolumeCollection TimeReceived Time09/15/2025 11:01 AM EST 09/15/2025 9:04 PM EST Narrative [facility] - 09/21/2025 11:08 AM EST Authorizing ProviderResult TypeResult StatusCorey Travis DOLAB BLOOD ORDERABLES Final ResultPerforming OrganizationAddressCity/State/ZIP CodePhone Number [facility] * US OB GROWTH (08/12/2025 9:12 AM EDT)Anatomical RegionLateralityModalityOther Specimen (Source)Anatomical Location / LateralityCollection Method / Volume Collection TimeReceived Time08/12/2025 9:12 AM EDT Narrative 08/12/2025 9:15 AM EDT [facility] ?[address] ? [place] [id number] ? Ultrasound Report ? Signed ? Patient: TERESITA BRAND ?MR#: [id number] ?? : 2005 ?Acct:[id number] ?? Age/Sex: 20 / F ?ADM Date: 08/11/25 ?? Loc: US ? Attending Dr: Dacia Madison ? Ordering Physician: Dacia Madison ?? Date of Service: 08/11/25 ?? Procedure(s): US OB growth ?? Accession Number(s): [id number] ? cc: Dacia Madison; Physician,Non-Staff M.D. ? [facility] ? [facility] ? [place] [address] ? Patient Name: ?? TERESITA BRAND ? MRN: [id number] ? date: 2005 ?Sex: F ?? Assigned Patient Location: [place] ?? Current Patient Location: ? Accession/Order Number: [id number] ?? Exam Date: 08/11/2025 ??14:18 ?Report Date: [...] M.D. ??08/12/2025 9:12 AM ? Dictation Location: [place] [address] ? Electronically authenticated by: [id number] ??Y ?? Date: 08/12/2025 ??09:12 ? Dictated By: ?Bhargavi Russo M.D. ? Signed By: ?08/12/25 0915 ? DD/ 0912 ? TD/TT: ? Receiving Clerk: Procedure Note Radiology, Radiologist, MD - 08/12/2025 [place] [address] Ultrasound Report Signed Patient: TERESITA BRAND [facility]#: [id number] : 2005Acct:[id number] Age/Sex: 20 / FADM Date: 08/11/25 Loc: US Attending Dr: Dacia Madison Ordering Physician: Dacia Madison Date of Service: 08/11/25 Procedure(s): OB growth Accession Number(s): [id number] cc: Dacia Madison; Physician,Non-Staff [place] The [place] [id number] Patient Name: TERESITA BRAND MRN: [id number] date: 2005 Sex: F Assigned Patient Location: Current Patient Location: Accession/Order Number: [id number] Exam Date: 08/11/2025 14:18 Report Date: 08/12/2025 [...] Russo M.D. 08/12/2025 9:12 AM Dictation Location: [place] [address] Electronically authenticated by: [id number] Y Date: 9:12 Dictated By: Bhargavi Russo M.D. Signed By:08/12/25914 DD/ 1 TD/TT: Receiving Clerk: Authorizing ProviderResult TypeResult StatusDacia Madison NPCLINISYNC IMAGING Final Result * (ABNORMAL) RECURRENT VAGINITIS (HTRX) (07/14/2025 9:54 AM EDT)ComponentValue Ref RangeTest MethodAnalysis TimePerformed AtPathologist SignatureATOPOBIUM VZHINPG74.782(A)19.961 - 24.689 ppm07/15/2025 5:55 AM EDTHealthTrackRx at LabPortATOPOBIUM VAGINAEDetected(A)19.961 - 24.689 ppm07/15/2025 5:55 AM EDT [facility] at LabKing[facility] ServicesBVAB 2,3 (BACTERIAL VAGINOSIS ASSOCIATED BACTERIA 2, 3); MOBILUNCUS BSH150.961 - 24.689 ppm07/15/2025 5:55 AM EDTHealthTrackRx at LabKing'S [facility] And Health ServicesBVAB 2,3 (BACTERIAL VAGINOSIS ASSOCIATED BACTERIA 2, 3); MOBILUNCUS SPP Not Xrziuudd16.961 - 24.689 ppm07/15/2025 5:55 AM EDTHealth[facility] QUAN ALBICANS, PARAPSILOSIS, KHBOYXLZLC30.18(A)23.000 - 30.347 ppm 07/15/2025 5:55 AM EDTHealthTrackRx at LabPortCANDIDA ALBICANS, PARAPSILOSIS, TROPICALISDetected(A)23.000 - 30.347 ppm07/15/2025 5:55 AM EDTHealthTrackRx at LabPortCANDIDA GIEBBUEC218.000 - 31.618 ppm07/15/2025 5:55 AM EDTHealthTrackRx at [facility] HospitalCANDIDA GLABRATANot Qriixufd46.000 - 31.618 ppm07/15/2025 5:55 AM EDTHealthTrackRx at LabPortCANDIDA OJJRGW868.000 - 30.873 ppm07/15/2025 5:55 AM EDTHealthTrackRx at LabPortCANDIDA KRUSEINot Dlkktzhb81.000 - 30.873 ppm 07/15/2025 5:55 AM EDTHealthTrackRx at LabPortCHLAMYDIA GPJVIRYVVEH986.000 - 31.586 ppm07/15/2025 5:55 AM EDTHealthTrackRx at LabPortCHLAMYDIA TRACHOMATIS Not Zjugpata89.000 - 31.586 ppm07/15/2025 5:55 AM EDTHealth[facility] GARDNERELLA RPURHHKSA018.961 - 24.689 ppm09/02/2025 5:55 AM EDTHealthTrackRx at Doctors HospitalGARDNERELLA VAGINALISNot Uzynwftw62.961 - 24.689 ppm07/15/2025 5:55 AM EDTHealthTrackRx at LabKing'S Daughters [facility] And Health ServicesMEGASPHAERA (TYPES 1, 2)019.961 - 24.689 ppm 07/15/2025 5:55 AM EDTHealthTrackRx at LabKing'S Daughters [facility] And Health ServicesMEGASPHAERA (TYPES 1, 2)Not Wfnkqfzo64.961 - 24.689 ppm07/15/2025 5:55 AM EDTHealth[facility] NEISSERIA HGLYPWJCHUX987.000 - 32.587 ppm07/15/2025 5:55 AM EDTHealthTrackRx at Doctors HospitalNEISSERIA GONORRHOEAENot Ubeexerz37.000 - 32.587 ppm07/15/2025 5:55 AM EDTHealthTrackRx at Doctors HospitalTRICHOMONAS KZGFWTEJP722.000 - 31.995 ppm 07/15/2025 5:55 AM EDTHealthTrackRx at Doctors HospitalTRICHOMONAS VAGINALISNot Mkyyxfcj61.000 - 31.995 ppm07/15/2025 5:55 AM EDTHealth[facility] at [facility] MYCOPLASMA TBNOQUHUKN647.961 - 24.689 ppm07/15/2025 5:55 AM EDTHealthTrackRx at Doctors HospitalMYCOPLASMA GENITALIUMNot Ghflrcsk03.961 - 24.689 ppm07/15/2025 5:55 AM EDTHealthTrackRx at LabKing'[facility] And Health ServicesSpecimen (Source)Anatomical Location / LateralityCollection Method / VolumeCollection TimeReceived TimeTissue 07/14/2025 9:54 AM EDT07/15/2025 1:25 AM EDT Narrative Authorizing ProviderResult TypeResult StatusAmy Lourdes GARCIA BLOOD ORDERABLES Final ResultPerforming OrganizationAddressCity/State/ZIP CodePhone Number [facility]ALTH[facility] LabKing[facility] [address] [address] from Last 3 Months Insurance Care Teams Team MemberRelationshipSpecialtyStart DateEnd Renetta Poon MD [facility]CP - [facility]19/23 Lilibeth Reyes NP [address] [place] [address] PCP - [facility]08/11/24
--- OUTSIDE RECORDS SUMMARY | 2025-10-01 16:36 | XMS_ITS | Clinical Summary ---
Author Organization [facility] Address [address], [address] [place] [address] Care Team Providers Care Geospatial Applications Developer Name Role Phone Renetta Poon MD Primary Care Provider [phone] Allergies Active AllergyReactionsCriticalityNoted DateCommentsBee VenomAnaphylaxisHigh 11/06/2023 Medications [...] Problems ProblemNoted DateDiagnosed Date28 weeks gestation of kxctjwuga51/27/2023 Social History Tobacco UseTypesPacks/DayYears UsedDateSmoking Tobacco: NeverSmokeless Tobacco: NeverAlcohol UseStandard Drinks/WeekCommentsNever0 (1 standard drink = 0.6 oz pure alcohol)[facility] UtilitiesAnswerDate RecordedIn the past 12 months has the [employer], gas, oil, or water [employer] threatened to shut off services in your home?No5AUDIT-CAnswerDate RecordedQ1: How often do you have a drink containing alcohol?Never11/06/2023Q2: How many drinks containing alcohol do you have on a typical day when you are drinking?Patient does not drink11/06/2023Q3: How often do you have six or more drinks on one occasion?Never11/06/2023HQ-2 AnswerDate RecordedPHQ-9 Total Nonbq980Hunger Vital SignAnswerDate RecordedWithin the past 12 months, [...] were you homeless or living in a fpc (including now)?No01/18/2025Food Insecurity AnswerDate RecordedWithin the past 12 months, you worried that your food would run out before you got the money to buymore.Within the past 12 months, the food you bought just didn't last and you didn't have money to get more.Interpersonal Safety Domain Source: IP Abuse ScreeningAnswerDate RecordedRead-Only, Retired: Physical LyfweKcdofr27/27/2023Read-Only, Retired: Verbal QgwjyYzxowz71/27/2023Read-Only, Retired: Emotional qaqneVvhmxq50/27/2023 Read-Only, Retired: Financial MruvsQhyisc53/27/2023Read-Only, Retired: Sexual iwxybRrxchb73/27/2023CommentsNoSex and Gender InformationValueDate RecordedSex Assigned at BirthNot on fileLegal GicPnasqy80/08/2022 8:12 PM EST Gender IdentityNot on fileSexual OrientationNot on file Last Filed Vital Signs Vital SignReadingTime TakenCommentsBlood Exifubjr341/66001/18/2025 10:35 AM EDT Mjsyy351111/06/2023 8:55 PM EBHTuwhlowldzk64.9 ??C (98.4 ??F)11/06/2023 8:55 PM ESTRespiratory Yshn355011/06/2023 8:55 PM ESTOxygen Ypojgthces24%11/06/2023 8:55 PM ESTInhaled Oxygen Concentration--Erskek39.8 kg (123 lb)01/18/2025 10:35 AM QWVEhrfxp233.7 cm (5' 8 )01/18/2025 10:35 AM EDTBody Mass Index18.7001/18/2025 10:35 AM EDT Plan of Treatment Health MaintenanceDue DateLast DoneCommentsHIV sojyil6801/10/2019HPV vaccine (1 - 3-dose series)01/10/2019Chlamydia/GC iycgec8401/11/2020Meningococcal B vaccine (1 of 2 - Standard)2020Hepatitis C mpmubq662Pap smear01/10/2025Flu vaccine (#1)06/11/2025OVID-19 Vaccine (1 - season)2025Depression Ihgihb67603/08/2025, 01/18/2025DTaP/Tdap/Td vaccine (8 - Td or Tdap) 3101/02/2023, 05/04/2022, 05/06/2019, Additional history existsHepatitis B iyaxzvoXqsnvvowz17/12/2005, 2004, 2004Hib vaccineCompleted 02/21/2005, 2004, 2004, Additional history existsPneumococcal 0-49 years VaccineAged Out02/21/2005, 2004, 2004, Additional history existsNo longer eligible based on patient's age to complete this topic Measles,Mumps,Rubella (MMR) gviwcbpTpuqkaniuinj72/26/2019, 02/21/2005 Meningococcal (ACWY) vaccineAged Out05/06/2019No longer eligible based on patient's age to complete this topicPolio vxmqqsfUjhuaenao81/21/2019, 2004, 2004, Additional history existsVaricella vaccineCompleted 07/01/2019, 02/21/2005Hepatitis A vaccineAged OutNo longer eligible based on patient's age to complete this topic Insurance * Guarantor: Cristian MCCANN TypeRelation to PatientDate of BirthPhone Billing AddressPersonal/VvxudmQqhpxt73/25/1976 [address] [address] * Guarantor: Cristian MCCANN TypeRelation to PatientDate of BirthPhone Billing AddressPersonal/NrgohqQxrbgn49/25/1976 [address] [address] Advance Directives * Full Code (Latest Code Status on File) Date ActivatedDate CgkhrfbxfgrXlecdusq54/27/2023 9:13 PM11/06/2023 11:39 PM Care Teams Team MemberRelationshipSpecialtyStart DateEnd Date Wonderly, Renetta Davidson MD [address] [place] [address] PCP - GeneralFamily Wdaydest24/27/23
--- OUTSIDE RECORDS SUMMARY | 2025-10-01 16:36 | XMS_ITS | Encounter Summary ---
Author Organization [facility] Address [address] [place] [address] Care Team Providers Care Salvage Cutter Name Role Phone CleveRenetta MD Primary Care Provider [phone] Lilibeth Reyes CRYSTALLIZER OPERATOR Unavailable [phone] Encounter Details DateTypeDepartmentCare Team (Latest Contact Info)Gkeygogdfdk56/12/2025amboo flowsheet [facility] [address] [place] [address] Dayna Freed PA [address] [facility] [address] [place], [facility] Social History Tobacco UseTypesPacks/DayYears UsedDateSmoking Tobacco: NeverSmokeless [...] on one occasion?Never03/18/2024HQ-2 AnswerDate RecordedPatient Health Questionnaire-2 Biuyo100 Estimated Date of XibxeuecPmzqihxjCjm54/04/2025Based on UltrasoundSex and Gender InformationValueDate RecordedSex Assigned at BirthNot on fileLegal SexFemale 01/23/2023 6:34 PM EDTGender IdentityNot on fileSexual OrientationNot on file documented as of this encounter Plan of Treatment DateTypeDepartmentCare Team (Latest Contact Info)Nhyxdjecxvf82/ 10:50 AM ESTPostpartum Visit [facility] [address] [place] [address] Michael Robles DO [address] [facility] [place] [address] documented as of this encounter Visit Diagnoses Not on filedocumented in this encounter Care Teams Team MemberRelationshipSpecialtyStart DateEnd Date Renetta Poon MD PCP - Generalmi Medicine03/19/23 Lilibeth Reyes NP [address] [facility] [place] [address] PCP - [facility]08/11/24documented as of this encounter
--- OUTSIDE RECORDS SUMMARY | 2025-10-01 16:36 | XMS_ITS | Encounter Summary ---
Author Organization [facility] Address [address] [place] [address] Care Team Providers Care Adjunct Psychology Faculty Member Name Role Phone Renetta Poon MD Primary Care Provider [phone] Lilibeth Reyes CORRESPONDENCE COORDINATOR Unavailable [phone] Encounter Details DateTypeDepartmentCare Team (Latest Contact Info)Aompwpzwypa50/17/2025Patient Outreach [facility] [address] [place] [phone] Dayna Go, MELI [address] [place] [address] Social History Tobacco UseTypesPacks/DayYears UsedDateSmoking Tobacco: NeverSmokeless [...] on one occasion?Never03/18/2024HQ-2 AnswerDate RecordedPatient Health Questionnaire-2 Basjg83311/27/2024 Estimated Date of UmrzuyeuFyjhgufwHkf12/04/2025Based on UltrasoundSex and Gender InformationValueDate RecordedSex Assigned at BirthNot on fileLegal SexFemale 01/23/2023 6:34 PM EDTGender IdentityNot on fileSexual OrientationNot on file documented as of this encounter Functional Status * Over the past 2 weeks, how often have you been bothered by any of the following problems?QuestionAnswerDate of AssessmentAuthorLittle interest or pleasure in doing thingsNot at all09/27/2025 11:20 AM Dayna Morales LPN Feeling down, depressed, or hopelessNot at all09/27/2025 11:20 AM Dayna Morales LPNPatient Health Questionnaire-2 Vlduv60911/27/2024 11:20 AM Dayna Morales LPN documented as of this encounter Progress Notes * Dayna Go LPN - 09/27/2025 11:20 AM EST Monthly Outreach. Call to pt. Pt reports she feels baby moving frequently. Appetite and sleep are adequate. Bowels are regular. Pt denies any depression or difficulty coping at this time. Pt reports her right arm was frequently going to sleep at night unless she sits upright. Pt reports once she gets up it subsides. Pt report this has occurred since last appt. She sees OB 09/29/25 and intends to mention it then. documented in this encounter Plan of Treatment DateTypeDepartmentCare Team (Latest Contact Info)Tlrewmmbuyq76/22/2025 10:50 AM ESTPostpartum Visit [facility] [address] [facility] [place] [address] Michael Robles DO [address] [facility] [place] [address] documented as of this encounter Visit Diagnoses Not on filedocumented in this encounter Care Teams Team MemberRelationshipSpecialtyStart DateEnd Date Renetta Poon MD PCP - GeneralFamily Medicine03/19/23 Lilibeth Reyes NP [address] [facility] [place] [address] PCP - [facility]08/11/24documented as of this encounter
--- OUTSIDE RECORDS SUMMARY | 2025-10-01 16:37 | XMS_ITS | Encounter Summary ---
Author Organization [facility] Address [address] [place] [address] Care Team Providers Care Special Education Coordinator Name Role Phone CleveRenetta MD Primary Care Provider [phone] Lilibeth Reyes SCRIP CLERK Unavailable [phone] Encounter Details DateTypeDepartmentCare Team (Latest Contact Info)Rxbpnjbjpgp29/19/2025amboo flowsheet [facility] [address] [facility] [place] [address] Michael Robles DO [address] [facility] [address] [place], [facility]11 Social History Tobacco UseTypesPacks/DayYears UsedDateSmoking Tobacco: NeverSmokeless [...] on one occasion?Never03/18/2024HQ-2 AnswerDate RecordedPatient Health Questionnaire-2 Bkzty55211/27/2024 Estimated Date of OvawkoclBjrjaatjHth54/04/2025Based on UltrasoundSex and Gender InformationValueDate RecordedSex Assigned at BirthNot on fileLegal SexFemale 01/23/2023 6:34 PM EDTGender IdentityNot on fileSexual OrientationNot on file documented as of this encounter Plan of Treatment DateTypeDepartmentCare Team (Latest Contact Info)Mbtlmtsauad87/22/2025 10:50 AM ESTPostpartum Visit [facility] [address] [place] [address] Michael Robles DO [address] [facility] [place] [address] documented as of this encounter Visit Diagnoses Not on filedocumented in this encounter Care Teams Team MemberRelationshipSpecialtyStart DateEnd Date Renetta Poon MD PCP - Generalmi Medicine03/19/23 Lilibeth Reyes NP [address] [place] [address] PCP - [facility]08/11/24documented as of this encounter
--- OUTSIDE RECORDS SUMMARY | 2025-10-01 16:37 | XMS_ITS | Clinical Summary ---
Author Organization [facility] tem Address [id number] [address] [place] [address] Care Team Providers Care Supervisor Lime Name Role Phone Renetta Poon MD Primary Care Provider [phone] Allergies Active AllergyReactionsCriticalityNoted DateCommentsBee Venom Protein (Honey Bee)Anaphylaxis,XdtahbttBczp53/04/2022 Medications MedicationSigDispense QuantityRefillsLast FilledStart DateEnd DateStatus norethindrone-e.estradioL-iron (11/30) 1 mg-20 mcg (21)/75 mg (7) per tablet Indications:Initiation of OCP (BCP)Take 1 tablet by mouth in the morning. 28 tablet 5Active Active Problems ProblemNoted DateDiagnosed DateIrregular lupkla3111/26/2023 Resolved Problems ProblemNoted DateDiagnosed DateResolved DateNSVD (normal spontaneous vaginal delivery)Encounter for elective induction of labor01/21/2024 01/23/2024Normal labor/ weeks gestation of /Threatened labor, third zyqucxbod53/14/2024 11/17/2024 Overview (12/25/2023): Celestone given 12/24/23 & 12/25/23 Iron deficiency anemia during eilvdmogq37/05/2025 Overview (11/03/2023): 11/03/23. Rx for PO Fe ordered. Reevaluate CBC in 4-6 weeks. Low lying placenta nos or without hemorrhage, second xiroklfzt52/09/2023 11/17/2024 Overview (11/01/2023): 10/18/23 RESOLVED no further MFM follow up 09/20/[address] Machado RECOMMENDATION: 1. Anterior low-lying placenta seen on today's ultrasound. Patient denies any bleeding. 2. Pelvic rest advised. 3. Follow-up repeat evaluation of placental location between 32-34 weeks gestation at our [facility] remote office. 4. InCase low-lying placenta resolves term spontaneous vaginal delivery at her local hospital is anticipated. 5. InCase low-lying placenta does not resolved beyond 34 weeks gestation please offer primary her local hospital between 36-37 weeks. 6. A follow-up ultrasound and office visit was scheduled today. Short interval between pregnancies affecting in first trimester, qunwnynely70/22/202301/05/2025 Overview (08/02/2023): 08/02/23 Her baby will be a year old the end of July 2022 Breast fed for 9 months (spontaneous vaginal delivery)/06/2023Normal labor07/17/2022 07/20/2022upervision of normal first , atzkqyntdm90/15/202212/ Abnormal US/ Overview (01/26/2022): US on 01/25/22 showed free fluid in abdomen/ will rpt in 4 weeks per MFM request If fluid remains MFM discussed Nipps and TORCH studies Immunizations ImmunizationAdministration DatesNext HdsIKR8307/20/2022()Tdap101/02/2023,07/20/2022 (),05/04/20229084Kfnpjapqg85/09/2022() Family History Medical HistoryRelationNameCommentsNo Known ProblemsBrother 1No Known Problems Brother 2No Known ProblemsBrother 3No Known ProblemsBrother 4HypertensionFather Heart diseaseMaternal GrandmotherNo Known ProblemsMotherRelationNameStatus CommentsBrother 1AliveBrother 2AliveBrother 3AliveBrother 4AliveFatherAlive Maternal GrandfatherAliveMaternal GrandmotherAliveMotherAlivePaternal GrandfatherunknownOtherPaternal GrandmotherunknownOther Social History Tobacco UseTypesPacks/DayYears UsedDateSmoking Tobacco: NeverSmokeless Tobacco: NeverAlcohol UseStandard Drinks/WeekCommentsNever0 (1 standard drink = 0.6 oz pure alcohol)Overall Financial Resource Strain (CARDIA)AnswerDate RecordedHow hard is it for you to pay for the very basics like food, housing, medical care, and heating?Not hard at all03/06/2024HQ-2AnswerDate RecordedTotal Score1 03/06/2024Edinburgh Depression ScaleAnswerDate RecordedEdinburgh Depression Scale Cqtmy99603/06/2024The thought of harming myself has occurred to me.Never03/06/2024Housing InstabilityAnswerDate RecordedAre you worried or concerned that in the next two months you may not have stable housing that you own, rent or stay in as a part of a household?No08/02/2023hildcare AnswerDate RecordedDo problems getting early childhood education worker make it difficult for you to work or study?No03/06/2024EmploymentAnswerDate RecordedEmploymentUnknown 04/22/2019Hunger ScreeningAnswerDate RecordedWithin the past 12 months we worried whether our food would run out before we got money to buy more.Never True11/17/2024Within the past 12 months the food we bought just didn't last and we didn't have money to get more.Never True11/17/2024CommentsNoSex and Gender InformationValueDate RecordedSex Assigned at BirthNot on fileLegal Sex Mzezhx1706/16/2015 12:01 PM EDTGender IdentityNot on fileSexual OrientationNot on file Last Filed Vital Signs Vital SignReadingTime TakenCommentsBlood Jdwzuhll350/6401 11:09 AM EST Fhjdp350301/23/2024 11:57 AM TVAZfegcxuasvn26.7 ??C (98.1 ??F)01/23/2024 11:57 AM EDTRespiratory Fzfn945901/23/2024 11:57 AM EDTOxygen Zqzsqnizgp499%01/22/2024 6:00 AM EDTInhaled Oxygen Concentration--Jkfhva18.2 kg (126 lb 3.2 oz)05/01/2024 11:27 AM QOKFqjryi626.7 cm (5' 7.99 )05/01/2024 11:27 AM EDTBody Mass Index19.19 05/01/2024 11:27 AM EDT Plan of Treatment Health MaintenanceDue DateLast DoneCommentsChlamydia Pkfqvwczv94/13/2025 12/24/2023, 08/02/2023, 01/12/2022ap Smear01/10/2025Depression Screening , 02/07/2024dult BMI Pejahhdlu89/Influenza Wtbfxsi2207/12/2025Tobacco Grpofwfwk62DTaP,Tdap and Td Vaccines (8 - Td or Tdap), 05/04/2022, 05/06/2019, Additional history exists Medical Devices Not on file Procedures Procedure NamePriorityDate/TimeAssociated DiagnosisCommentsCHLAMYDIA/GC BY PCR DONNY EIVRAMKD65/13/2024 5:56 PM EST from Last 3 Months or Most Recently Relevant to Health Maintenance Results * Chlamydia/GC by PCR Donny Swab (12/24/2023 5:56 PM EST)ComponentValueRef Range Test MethodAnalysis TimePerformed AtPathologist SignatureSpecimen source NGFHWJPF67/13/2024 8:53 PM [facility] SERVICESChlamydia DNA PCR NegativeNegative^Jznqyauf00/14/2024 11:42 AM [facility] Comment: ? Chlamydia trachomatis not detected by nucleic acid amplification. This does not exclude the possibility of infection because results are dependent on adequate specimen collection. ? Gonorrhea DNA PCRNegativeNegative^Cyedpwbe90/14/2024 11:42 AM [facility] LABComment: ? Neisseria gonorrhoeae not detected by nucleic acid amplification. This does not exclude the possibility of infection because results are dependent on adequate specimen collection. ? Specimen (Source)Anatomical Location / LateralityCollection Method / Volume Collection TimeReceived HrypBMNA58/13/2024 5:56 PM EST12/24/2023 8:53 PM EST Narrative Authorizing ProviderResult TypeResult StatusStepab Doe APRN-CNM MICROBIOLOGY - GENERAL ORDERABLESFinal ResultPerforming OrganizationAddress City/State/ZIP CodePhone Number [facility] [address] [place] [address] [facility] [address] [place] [address] from Last 3 Months or Most Recently Relevant to Health Maintenance Insurance Advance Directives * Full Code (Latest Code Status on File) Date ActivatedDate InactivatedComments01/22/2024 7:39 AM01/23/2024 6:30 PM * Full Code Date ActivatedDate InactivatedComments12/24/2023 8:10 12/24/2023 11:30 PM * Full Code Date ActivatedDate InactivatedComments07/17/2022 6:24 PM07/20/2022 2:15 PM Care Teams Team MemberRelationshipSpecialtyStart DateEnd Date Renetta Poon MD [address] [place] [address] PCP - GeneralFamily Medicine01/12/22
--- OUTSIDE RECORDS SUMMARY | 2025-10-01 16:37 | XMS_ITS | Encounter Summary ---
Author Organization [facility] Address [address] [place] [address] Care Team Providers Care Butcher Name Role Phone Renetta Poon MD Primary Care Provider [phone] Lilibeth Reyes AUDIO VIDEO TECH Unavailable [phone] Encounter Details DateTypeDepartmentCare Team (Latest Contact Info)Ajoqjfyuhqy96/05/2025linisync Result Encounter [facility] Department Unsolicited Michael Robles, DO [address] [facility] [address] [place], [place] [id number] Social History Tobacco UseTypesPacks/DayYears UsedDateSmoking Tobacco: NeverSmokeless [...] on one occasion?Never03/18/2024HQ-2 AnswerDate RecordedPatient Health Questionnaire-2 Aebhm019 Estimated Date of RsswloisGtpifyfhRgq10/04/2025Based on UltrasoundSex and Gender InformationValueDate RecordedSex Assigned at BirthNot on fileLegal SexFemale 01/23/2023 6:34 PM EDTGender IdentityNot on fileSexual OrientationNot on file documented as of this encounter Plan of Treatment DateTypeDepartmentCare Team (Latest Contact Info)Yznvwtgsfvn09/22/2025 10:50 AM ESTPostpartum Visit [facility] [address] [place] [phone] Michael Robles, DO [address] [facility] [address] [place], [place] [address] documented as of this encounter Procedures Procedure NamePriorityDate/TimeAssociated DiagnosisCommentsORGANISM ZKOXBAHGXJCOELRtxwlcb19/05/2025 11:01 AM EST STREP GP B CULTURE+DAAXWalfgyj18/05/2025 11:01 AM EST documented in this encounter Results * ORGANISM IDENTIFICATION (09/15/2025 11:01 AM EST)ComponentValueRef RangeTest MethodAnalysis TimePerformed AtPathologist SignatureORGANISM IDENTIFICATION ??Organism Identification WILL FOLLOW TBHSpecimen (Source)Anatomical Location / LateralityCollection Method / Volume Collection TimeReceived Time09/15/2025 11:01 AM EST09/15/2025 9:04 PM EST Narrative [facility] - 09/21/2025 11:08 AM EST Authorizing ProviderResult TypeResult StatusCorey Travis DOLAB BLOOD ORDERABLES Final ResultPerforming OrganizationAddressCity/State/ZIP CodePhone Number [facility] TB * STREP GP B CULTURE+RFLX (09/15/2025 11:01 [...] ORDERABLES Final ResultPerforming OrganizationAddressCity/State/ZIP CodePhone Number [facility] documented in this encounter Visit Diagnoses Not on filedocumented in this encounter Care Teams Team MemberRelationshipSpecialtyStart DateEnd Renetta [place] MD PCP - GeneralFamily Medicine03/19/23 Lilibeth Reyes NP [address] [place] [address] PCP - [facility]08/11/24documented as of this encounter
--- OUTSIDE RECORDS SUMMARY | 2025-10-01 16:37 | XMS_ITS | Encounter Summary ---
Author Organization [facility] Address [address] [place] [address] Care Team Providers Care Frame Maker Name Role Phone CleveRenetta MD Primary Care Provider [phone] Lilibeth Reyes DISTRIBUTION COLLECTION OPERATOR Unavailable [phone] Encounter Details DateTypeDepartmentCare Team (Latest Contact Info)Uqufeystejj33/19/2025bstract [facility] [address] [facility] [place] [address] Michael Robles DO [address] [facility] [address] [place], [facility] Social History Tobacco UseTypesPacks/DayYears UsedDateSmoking Tobacco: [...] on one occasion?Never03/18/2024HQ-2 AnswerDate RecordedPatient Health Questionnaire-2 Ziplf35811/27/2024 Estimated Date of WlybjtjrCvdeupfuNxa83/04/2025Based on UltrasoundSex and Gender InformationValueDate RecordedSex Assigned at BirthNot on fileLegal SexFemale 01/23/2023 6:34 PM EDTGender IdentityNot on fileSexual OrientationNot on file documented as of this encounter Plan of Treatment DateTypeDepartmentCare Team (Latest Contact Info)Ntbdbdcnhof48/22/2025 10:50 AM ESTPostpartum Visit [facility] [address] [facility] [address] Michael Robles DO [address] [facility] [place] [address] documented as of this encounter Visit Diagnoses Not on filedocumented in this encounter Care Teams Team MemberRelationshipSpecialtyStart DateEnd Date Renetta Poon MD PCP - GeneralFami Medicine03/19/23 Lilibeth Reyes NP [address] [facility] [place] [address] PCP - [facility]08/11/24documented as of this encounter
[2025-10-01 16:46] VITALS: BP 118/70; PULSE 86
[2025-10-01 17:03] LABS: Glucose Urine UA NEGATIVE (NEGATIVE)
[2025-10-01 17:13] LABS: Cast Seen? NONE SEEN #/LPF (NONE SEEN); Crystals Seen? None Seen #/HPF (None Seen); Urine Culture Indicated YES-FRMC
--- NOTE | 2025-10-01 20:31 | PC.NURSE ---
Blood drawn done for admission labs
[2025-10-01 20:40] LABS: Hematocrit 32.1 % (36.0-48.0); Hemoglobin 10.1 g/dL (12.0-16.0); Mean Corpuscular HGB Conc 31.5 g/dL (29.9-35.2); Mean Corpuscular Hemoglobin 25.2 pg (26.7-34.0); Mean Corpuscular Volume 80.0 fL (81.0-99.0); Platelet Count 201 10^3/uL (150-450); Red Blood Count 4.01 10^6/uL (4.20-5.40); White Blood Count 7.7 10^3/uL (4.0-11.0)
[2025-10-01] MEDS: AMPICILLIN SODIUM 2,000 MG in 0.9 % SODIUM CHLORIDE 100 ML 200 MG IV (20:57)
[2025-10-01] MEDS: 0.9 % SODIUM CHLORIDE 1,000 ML 1000 ML IV (20:59)
[2025-10-01 21:03] LABS: Cannabinoid Screen Urine NEGATIVE (NEGATIVE); Methamphetamines Screen Urine NEGATIVE (NEGATIVE); Tricyclic Antidepressant Urine NEGATIVE (NEGATIVE)
[2025-10-01 21:08] VITALS: BP 119/67; PULSE 69
[2025-10-01 21:12] VITALS: TEMP 35
[2025-10-01 23:22] VITALS: BP 106/55; PULSE 65
[2025-10-02] VITALS (40 sets, daily range): BP systolic 100–135; BP diastolic 55–84; PULSE 51–81; TEMP 35.7–36.7
[2025-10-02] MEDS: AMPICILLIN SODIUM 1,000 MG in 0.9 % SODIUM CHLORIDE 50 ML 100 MG IV (01:12)
[2025-10-02] MEDS: OXYTOCIN/0.9 % SODIUM CHLORIDE 10 UNITS/500 ML PLAST..BAG 6 UNIT IV (01:58)
[2025-10-02] MEDS: 0.9 % SODIUM CHLORIDE 1,000 ML 125 ML IV ×2 (02:46→04:31)
[2025-10-02] MEDS: ROPIVACAINE HCL/PF 400 MG/200 ML PREMIX 6 MG EPIDURAL (04:31)
[2025-10-02] MEDS: AMPICILLIN SODIUM 1,000 MG in 0.9 % SODIUM CHLORIDE 50 ML 50 MG IV (04:47)
--- NOTE | 2025-10-02 06:35 | PM.OBHP ---
OB - H&P: HPI History of Present Illness Chief complaint: CONTRACTIONS : 3 Para: 2 Date of last menstrual period: 12/19/2024 Gestational age based on last menstrual period: 38wks 1day on admission Narrative: Patient presents to L&D with pressure and contractions rating the pain 8/10. GFM, no leaking of fluid. Patient was observed. FHR tracing reactive but did have a few times with decreased heart rate so it was decided to admit and augment labor after receiving antibiotics for +Grp B Strep screen. complicated by Anemia, short interval between pregnancies. Known chronic fatigue and prior hypokalemia History of Present Dating criteria: based on 1st trimester US only care: good care Ultrasounds: normal 1st trimester US and normal mid trimester US Medical complications OB: none Labs Blood type: O (+) positive Rubella: immune RPR/VDLR: nonreactive GBS status: positive HBsAG: negative Review of Systems ROS Status of ROS: 10 or more systems reviewed and unremarkable except as noted in history and below PFSH PFSH Social History Highest level of school completed/degree received: high school graduate Little interest or pleasure in doing things: not at all Feeling down, depressed, or hopeless: not at all Meds Home Medications and Allergies Allergies Allergy/AdvReac Type Severity Reaction Status Date / Time No Known Drug Allergies Allergy Verified 10/01/25 16:58 Exam Constitutional Vital Signs, click to edit/add: Last Vital Signs Temp 96.3 F L 10/02/25 05:06 Pulse 78 10/02/25 06:29 BP 135/64 10/02/25 06:29 Documenting provider has reviewed patient's vital signs: yes Common normals: average body habitus, oriented x3 and healthy appearing Exam limitations: altered mental status General appearance: cooperative HENMT Common normals: normocephalic Eye Common normals: EOMs intact bilaterally Neck & C-Spine Common normals: full ROM Respiratory Common normals: normal respiratory effort Cardio Common normals: regular rate GI Other: gravid Manual OB Exam: dilated 3 cm, effaced 50% and station -2 Extremity Common normals: normal to inspection Neuro Common normals: oriented x3 Psych Common normals: mental status grossly normal Results Labs Labs: Short CBC 10/01/25 Range/Units 20:30 WBC 7.7 (4.0-11.0) 10^3/uL Hgb 10.1 L (12.0-16.0) g/dL Hct 32.1 L (36.0-48.0) % Plt Count 201 (150-450) 10^3/uL Urine 10/01/25 Range/Units 16:45 Urine Color Yellow (YELLOW) Urine Clarity Clear (CLEAR) Urine pH 7.0 (5.0-9.0) Ur Specific [place] 1.020 (1.005-1.025) Urine Protein Trace (NEG/TRACE) mg/dL Urine Glucose (UA) Negative (NEGATIVE) mg/dL OB - A/P Assessment and Plan (1) Term : Plan Admit and augment Ampicillin for +Grp B Strep screen Urinary Catheter Management Urinary Catheter Management Urethral: Cath placed during this visit: yes Urethral indwelling: No Insertion date: 10/02/25 Insertion time: 05:00
--- NOTE | 2025-10-02 06:52 | P.OBPRC_ITS ---
Procedure events: Labor Augmentation Intrapartal events: None Delivery augmentation: pitocin Delivery monitor: external FHT Route of delivery: Episiotomy Description: none L&D Laceration Description: none Estimated blood loss (mL): 150 Anesthesia type: Epidural Disposition: no change Narrative: viable male over intact perineum, LIBBY. Placenta delivered with gentle complication, 3VC, no tears. EBL 150mL Infant Delivery date: 10/14/25 Gender: male presentation: vertex Placental delivery description: Spontaneous cord description: 3 Vessels heart rate - 1 minute: 100 bpm or Greater respiratory effort - 1 minute: Spontaneous/Strong Cry muscle tone - 1 minute: Active Movement reflex response - 1 minute: Prompt Response color - 1 minute: Bluish Hands or Feet total score - 1 minute: 9 heart rate - 5 minute: 100 bpm or Greater respiratory effort - 5 minute: Spontaneous/Strong Cry muscle tone - 5 minute: Active Movement reflex response - 5 minute: Prompt Response color - 5 minute: Seis [place]/No Cyanosis total score - 5 minute: 10 heart rate - 10 minute: 100 bpm or Greater
[2025-10-02] MEDS: OXYTOCIN/0.9 % SODIUM CHLORIDE 20 UNITS/1,000 ML PLAST..BAG 125 UNIT IV (07:14)
[2025-10-02] MEDS: IBUPROFEN 600 MG TABLET PO ×3 (08:23→23:11)
[2025-10-03 01:12] VITALS: BP 119/85; PULSE 57; TEMP 36.8
--- NOTE | 2025-10-03 08:06 | PM.OBPN ---
OB - PN: Subj Subjective Patient comments: no complaints [place] status: doing well Narrative: requesting discharge Exam Constitutional Vital Signs, click to edit/add: Last Vital Signs Temp 98.3 F 10/03/25 01:12 Pulse 57 L 10/03/25 01:12 Resp 16 10/03/25 01:15 BP 119/85 10/03/25 01:12 O2 Del Method Room Air 10/03/25 01:15 Common normals: no apparent distress GI Inspection: normal to inspection Other: Fundus firm below umbilicus Other: minimal bleeding Extremity Common normals: full ROM Neuro Common normals: oriented x3 Psych Common normals: mental status grossly normal Urinary Catheter Management Urinary Catheter Management Urethral: Cath placed during this visit: yes Urethral indwelling: No Insertion date: 10/02/25 Insertion time: 05:00 OB - PN: A/P Assessment and Plan (1) Term : Plan Home Plan - Vaginal Delivery day: 1 Plan: discharge home Time Spent with Patient Time: Total time spent is greater than 50% in coordination of care (as documented) at patient's floor/unit and/or counseling patient: Total time spent with greater than 50% in coordination of care (as documented) at patient's floor/unit and/or counseling patient: less than 15 minutes
--- NOTE | 2025-10-03 08:08 | P.DS_ITS ---
DS: Providers Provider Date of admission: 10/01/25 16:30 Primary care physician: Non-Staff Physician, Admitting clinician: Cuca Fabian Attending physician on admission: Michael Robles Attending physician on discharge: Michael Robles Discharging clinician: Cuca Fabian Anticipated date of discharge: 10/03/25 DS: Diagnosis Discharge Diagnosis (1) Term : Plan Home OB - DS: Summary Hospital Course Hospital Course: Normal course Delivery method: spontaneous vaginal delivery Gender: male Discharge plan: home Status at Discharge Functional status at discharge: independent ambulation Time Spent with Patient Time attestation: Total time spent providing and/or coordinating discharge services: Time spent: less than 30 minutes Exam Constitutional Vital Signs, click to edit/add: Last Vital Signs Temp 98.3 F 10/03/25 01:12 Pulse 57 L 10/03/25 01:12 Resp 16 10/03/25 01:15 BP 119/85 10/03/25 01:12 O2 Del Method Room Air 10/03/25 01:15 DS: Data Data Completed and Pending Labs on day of discharge: Preliminary micro results at discharge 10/01/25 16:45 Urine Culture - Preliminary Urine,Clean Catch Pending - Specimen sent to [facility] Discharge Plan Discharge Disposition: (FBC OBS) Home, Self-Care Activity: increase activity as tolerated Activity Detail: nothing per vagina for 6 weeks Diet: advance to your usual diet Print Language: Amharic Patient Instructions: Postterm (DC) Follow Up Appointments: to call her OB for follow up dte
[2025-10-03 09:05] VITALS: BP 125/70; PULSE 66
[2025-10-03] MEDS: IBUPROFEN 600 MG TABLET PO (09:05)
[2025-10-03] MEDS: DOCUSATE SODIUM 100 MG CAPSULE PO (09:05)
[2025-10-03 09:12] VITALS: TEMP 36.7
--- OUTSIDE RECORDS SUMMARY | 2025-10-06 16:46 | XMS_ITS | Clinical Summary ---
Author Organization [facility] Address [address] [place] [address] Care Team Providers Care Deicer Repairer Electric Name Role Phone Renetta Poon MD Primary Care Provider [phone] Lilibeth Reyes LAND AGENT Unavailable [phone] Allergies Active AllergyReactionsCriticalityNoted DateCommentsBee VenomAnaphylaxis, QcymoigjJcca11/04/2022Honey Bee VenomAnaphylaxis,XdcgjktyMnnz42/04/2022 Medications MedicationSigDispense QuantityRefillsLast FilledStart DateEnd DateStatus MV-Min-Fe Fum-FA-DHA ( 1 PO) Take by mouthActive promethazine (Phenergan) 12.5 MG tablet Indications:14 weeks gestation of ([facility]),NauseaTake 1 tablet (12.5 mg) by mouth [...] capsule 5Active Active Problems ProblemNoted DateDiagnosed DateChronic mwmxvwv2303/18/20248993Zotdxvycswc88/08/2024 Irregular uaekwx0711/26/2023Iron deficiency anemia during ([facility]) 11/03/2023 Overview (11/22/2023): 11/03/23. Rx for PO Fe ordered. Reevaluate CBC in 4-6 weeks. Estimated Date of FwcuyincRirweksjElb93/04/2025Based on Ultrasound Resolved Problems ProblemNoted DateDiagnosed DateResolved DateNSVD (normal spontaneous vaginal delivery) ([facility])Threatened labor, third trimester ([facility])/06/2024 Overview (03/18/2024): Celestone given 12/24/23 & 12/25/23 Disorder of boorpz53/8 weeks gestation of ([facility]) Low lying placenta nos or without hemorrhage, second trimester ([facility])/06/2024 Overview (11/26/2023): 10/18/23 RESOLVED no further [facility] follow up 09/20/[address] [facility] [address] Machado RECOMMENDATION: 1. Anterior low-lying placenta seen on today's ultrasound. Patient denies any bleeding. 2. Pelvic rest advised. 3. Follow-up repeat evaluation of placental location between 32-34 weeks gestation at our [facility] remote office. 4. InCase low-lying placenta resolves term spontaneous vaginal delivery at her local hospital is anticipated. 5. InCase low-lying placenta does not resolved beyond 34 weeks gestation please offer primary her local hospital between 36-37 weeks. 6. A follow-up ultrasound and office visit was scheduled today. Short interval between pregnancies affecting in first trimester, antepartum ([facility])/06/2024 Overview (11/26/2023): 08/02/23 Her baby will be a year old the end of July 2022 Breast fed for 9 months Encounters DateTypeDepartmentCare BtakGifkonjynde09/19/2025 10:50 AM ESTRoutine [facility] [place] [facility] [address] [place] [address] [place] [address] Michael Robles, DO Third trimester ([facility]); 37 weeks gestation of ([facility])5Abstract [facility] [place] RAVIN Rhett [facility] [place] [address] Michael Robles, DO 5Bamboo flowsheet [facility] [place] [facility] [address] [facility] [place] [address] Michael Robles, DO 09/27/2025Patient Outreach [facility] [address] [place] [address] Dayna Go LPN 09/22/2025 9:40 AM ESTRoutine [facility] [place] Delaney [facility] [place] [address] Dayna Freed PA 36 weeks gestation of ([facility]); Third trimester ([facility]); Gastroesophageal reflux in ([facility])5Bamboo flowsheet [facility] [place] [facility] [address] [facility] [place] [address] Dayna Freed PA 09/15/2025 11:10 AM ESTRoutine [facility] [place] RAVIN [address] [facility] [place] [address] Michael Roblse, Third trimester ([facility]); 35 weeks gestation of ([facility])5Clinisync Result Encounter [facility] External Department Unsolicited Michael Robles, DO 5Bamboo flowsheet [facility] [place] [facility] [address] [facility] [place] [address] Michael Robles, DO 09/02/2025 9:20 AM EDTRoutine [facility] [place] [facility] [address] [facility] [place] [address] Dayna Freed PA 34 weeks gestation of ([facility]); Third trimester ([facility]); Gastroesophageal reflux in ([facility])09/02/2025amboo flowsheet [facility] [place] [address] Dayna Freed PA 08/26/2025Patient Outreach [facility] [address] [place] [address] Dayna Go LPN 08/12/2025linisync Result Encounter [facility] External Department Unsolicited Dacia Madison NP 08/12/2025bstract [facility] [place] [address] Michael Robles DO 08/11/2025 2:50 PM EDTRoutine [facility] [place] [address] Dacia Madison NP 30 weeks gestation of ([facility]) (Primary Dx); Third trimester ([facility])08/11/2025amboo flowsheet [facility] [place] Delaney [facility] [place] [address] Dacia Madison NP 07/30/2025Patient Outreach [facility] [address] [place] [address] Dayna Go LPN 07/28/2025 11:20 AM EDTRoutine [facility] [place] RAVIN [address] [place] [address] Michael Robles DO size inconsistent with dates ([facility]) (Primary Dx); Third trimester ([facility]); 28 weeks gestation of ([facility])5Bamboo flowsheet [facility] [place] [facility] [address] [facility] [place] [address] Michael Robles DO 07/15/2025bstract [facility] [place] [facility] [address] [facility] [place] [address] Priscila Patten MA 07/15/2025Telephone [facility] [place] [facility] [address] [facility] [place] [address] Priscila Patten MA 07/14/2025 8:50 AM EDTRoutine [facility] [place] RAVIN [address] [place] [address] [place] [address] Dayna Freed PA 26 weeks gestation of ([facility]); Second trimester ([facility]); Vaginal discharge; Exposure to STD; Gastroesophageal reflux in ([facility]); Yltzncmvl29/03/2025amboo flowsheet [facility] [place] [facility] [address] [place] [address] [place] [address] Dayna Freed PA 07/08/2025bstract [facility] [address] [place] [address] Dayna Go LPN from Last 3 Months Immunizations ImmunizationAdministration DatesNext DueDTaP / Hep B / IPV2004DTaP, Ratlbadymph82/13/2005,2004,2004Hep B, Adolescent or Pediatric 2004,2004HiB, lkfeleerxjn71/13/2005,2004,2004Hib (PRP-T) 2004IPV07/01/2019,2004,2004MMR05/06/2019,02/21/2005 Meningococcal ZCS2R8305/06/2019Pneumococcal Conjugate PCV 7002/21/2005,2004, 2004,2004Tdap101/02/2023,05/04/2022,05/06/20194188Fmiweahel54/21/2019, 02/21/2005 Family History Medical HistoryRelationNameCommentsHeart diseaseFatherHypertensionFatherHeart diseaseMaternal [...] drinks on one occasion?Never03/18/2024HQ-2AnswerDate RecordedPatient Health Questionnaire-2 Cpvzr30911/27/2024Estimated Date of KvdpgsvbXwzmsppbMxt04/04/2025ased on UltrasoundSex and Gender InformationValue Date RecordedSex Assigned at BirthNot on fileLegal YhqAjanfo84/15/2023 6:34 PM EDTGender IdentityNot on fileSexual OrientationNot on file Last Filed Vital Signs Vital SignReadingTime TakenCommentsBlood Vdsfdvzp102/6209/29/2025 10:55 AM EST Eljcc71672/28/2025 3:04 PM TMLNgiacgronad90.3 ??C (102.8 ??F)12/08/2024 3:04 PM ESTRespiratory Rate--Oxygen Ssohhudhlb91%12/08/2024 3:04 PM ESTInhaled Oxygen Concentration--Enswjl94.1 kg (159 lb)09/29/2025 10:55 AM TPWRexdkv269.2 cm (5' 7 )03/18/2024 3:59 PM EDTBody Mass Index24.9003/18/2024 3:59 PM EDT Plan of Treatment DateTypeDepartmentCare Team (Latest Contact Info)Vdsmmdmbrve33/22/2025 10:50 AM ESTPostpartum Visit [facility] [place] OBTerry [address] [place] [address] [place] [address] Michael Robles, DO [address] [facility] [place] [address] Health MaintenanceDue DateLast DoneCommentsCOVID-19 Vaccine (2024-26 season) 2025Influenza Vaccine (#1)2025Pneumococcal Vaccine: Pediatrics (0 to 5 Years) and At-Risk Patients (6 to 64 Years)Aged Out02/21/2005, 2004, 2004, Additional history existsNo longer eligible based on patient's age to complete this topic Procedures Procedure NamePriorityDate/TimeAssociated DiagnosisCommentsPOCT URINALYSIS MFPWCSHOAaahktn83/19/2025 10:56 AM EST 37 weeks gestation of ([facility]) POCT URINALYSIS AQNDUMQUHsktrsv18/12/2025 9:35 AM EST 36 weeks gestation of ([facility]) Third trimester ([facility]) POCT URINALYSIS SRIHFBFPNzvvyoo11/05/2025 11:13 AM EST Third trimester ([facility]) ORGANISM TFPNMFSEOMSLSGTcfycfd55/05/2025 11:01 AM EST STREP GP B CULTURE+JRXFZpqhmso34/05/2025 11:01 AM EST POCT URINALYSIS LSZNLFZAQzlmjra13/23/2025 9:49 AM EDT 34 weeks gestation of ([facility]) Third trimester ([facility]) US OB BRJWQM3108/12/2025 9:12 AM EDT POCT URINALYSIS HSGNWKHNXavdbgt97/01/2025 2:48 PM EDT 30 weeks gestation of ([facility]) POCT URINALYSIS FXDSUZHVWdgczhd94/17/2025 11:27 AM EDT Third trimester ([facility]) 28 weeks gestation of ([facility]) RECURRENT VAGINITIS (HTRX)Pyaegxf4807/14/2025 9:54 AM EDT POCT URINALYSIS EQLYOYVVEtjunyp38/03/2025 8:56 AM EDT 26 weeks gestation of ([facility]) Second trimester ([facility]) from Last 3 Months Results * (ABNORMAL) [...] Location / LateralityCollection Method / VolumeCollection TimeReceived MsnkIwurp59/19/2025 10:56 AM EST Narrative Authorizing ProviderResult TypeResult [...] BLOOD ORDERABLES Final ResultPerforming OrganizationAddressCity/State/ZIP CodePhone Number ROMEO MONTEIROH * STREP GP B CULTURE+RFLX (09/15/2025 11:01 [...] EDT Narrative 08/12/2025 9:15 AM EDT [facility] ?[address] ? [place] [facility] ? Ultrasound Report ? Signed ? Patient: BRAND,TERESITA N ?MR#: [id number] ?? : 2005 ?Acct:[id number] ?? Age/Sex: 20 / F ?ADM Date: 08/11/25 ?? Loc: [place] ? Attending Dr: Dacia Madison ? Ordering Physician: Dacia Madison ?? Date of Service: 08/11/25 ?? Procedure(s): US OB growth ?? Accession Number(s): [id number] ? cc: Dacia Madison; Physician,Non-Staff M.D. ? [facility] ? [address] ? [place] [address] ? Patient Name: ?? TERESITA Terry BRAND ? MRN: [facility]:[id number] ? date: 2005 ?Sex: F ?? Assigned Patient Location: [place] ?? Current Patient Location: ? Accession/Order Number: [id number] ?? Exam Date: 08/11/2025 ??14:18 ?Report Date: [...] M.D. ??08/12/2025 9:12 AM ? Dictation Location: [place] [address] ? Electronically authenticated by: [id number] ??Y ?? Date: 08/12/2025 ??09:12 ? Dictated By: ?Bhargavi Russo M.D. ? Signed By: ?08/12/25 0915 ? DD/ ? TD/TT: ? Application Developer Manager: Procedure Note Radiology, Radiologist, - 08/12/2025 [place] [address] Ultrasound Report Signed Patient: TERESITA BRAND [facility]#: [id number] : 2005Acct:[id number] Age/Sex: 20 / FADM Date: 08/11/25 Loc: US Attending Dr: Dacia Madison Ordering Physician: Dacia Madison Date of Service: 08/11/25 Procedure(s): US OB growth Accession Number(s): [id number] cc: Dacia Madison; Physician,Non-Staff M.D. The [address] [address] Patient Name: TERESITA BRAND MRN: [facility]:[id number] date: 2005 Sex: F Assigned Patient Location: Current Patient Location: Accession/Order Number: [id number] Exam Date: 08/11/2025 14:18 Report Date: 08/12/2025 [...] Russo M.D. 08/12/2025 9:12 AM Dictation Location: [place] [address] Electronically authenticated by: [id number] Y Date: 9:12 Dictated By: Bhargavi Russo M.D. Signed By:08/12/25914 DD/ 1 TD/TT: Application Developer Manager: Authorizing ProviderResult TypeResult StatusDacia Madison NPCLINISYNC IMAGING Final Result * (ABNORMAL) RECURRENT VAGINITIS (HTRX) (07/14/2025 9:54 AM EDT)ComponentValue Ref RangeTest MethodAnalysis TimePerformed AtPathologist SignatureATOPOBIUM MNNKCSE73.782(A)19.961 - 24.689 [facility]07/15/2025 5:55 AM EDTHealthTrackRx at LabPortATOPOBIUM VAGINAEDetected(A)19.961 - 24.689 ppm07/15/2025 5:55 AM EDT [facility] LabMedical [facility] Of Southern IndianaBVAB 2,3 (BACTERIAL VAGINOSIS ASSOCIATED BACTERIA 2, 3); MOBILUNCUS IAR022.961 - 24.689 ppm07/15/2025 5:55 AM EDTHealthTrackRx at LabMedical Center Of Southern IndianaBVAB 2,3 (BACTERIAL VAGINOSIS ASSOCIATED BACTERIA 2, 3); MOBILUNCUS SPP Not Qemijkls08.961 - 24.689 ppm07/15/2025 5:55 AM EDTHealthTrackRx at LabPort QUAN ALBICANS, PARAPSILOSIS, TVCDUGSMYW33.18(A)23.000 - 30.347 ppm 07/15/2025 5:55 AM EDTHealthTrackRx at LabPortCANDIDA ALBICANS, PARAPSILOSIS, TROPICALISDetected(A)23.000 - 30.347 ppm07/15/2025 5:55 AM EDTHealthTrackRx at LabPortCANDIDA ZQLLCXLB150.000 - 31.618 ppm07/15/2025 5:55 AM EDTHealthTrackRx at LabPortCANDIDA GLABRATANot Jadrssdw76.000 - 31.618 ppm07/15/2025 5:55 AM EDTHealthTrackRx at LabPortCANDIDA KSAXQC153.000 - 30.873 ppm07/15/2025 5:55 AM EDTHealthTrackRx at LabPortCANDIDA KRUSEINot Grdqhewl80.000 - 30.873 ppm 07/15/2025 5:55 AM EDTHealthTrackRx at LabPortCHLAMYDIA QVUKSJZIWHV460.000 - 31.586 ppm07/15/2025 5:55 AM EDTHealthTrackRx at LabMedical Center Of Southern IndianaCHLAMYDIA TRACHOMATIS Not Jlcyywpd99.000 - 31.586 ppm07/15/2025 5:55 AM EDTHealthTrackRx at LabPort GARDNERELLA KYQQRFSEM246.961 - 24.689 ppm07/15/2025 5:55 AM EDTHealthTrackRx at [facility] HospitalGARDNERELLA VAGINALISNot Wavltzzb42.961 - 24.689 ppm07/15/2025 5:55 AM EDTHealthTrackRx at LabPortMEGASPHAERA (TYPES 1, 2)019.961 - 24.689 ppm 07/15/2025 5:55 AM EDTHealthTrackRx at LabPortMEGASPHAERA (TYPES 1, 2)Not Sgmkdrly70.961 - 24.689 ppm07/15/2025 5:55 AM EDTHealthTrackRx at LabPort NEISSERIA QQORDZXSYAZ097.000 - 32.587 ppm07/15/2025 5:55 AM EDTHealthTrackRx at LabMedical Center Of Southern IndianaNEISSERIA GONORRHOEAENot Wkjyjusd24.000 - 32.587 ppm07/15/2025 5:55 AM EDTHealthTrackRx at LabPortTRICHOMONAS FSZMSHABA609.000 - 31.995 ppm 07/15/2025 5:55 AM EDTHealthTrackRx at LabMedical Center Of Southern IndianaTRICHOMONAS VAGINALISNot Fesmnzmn94.000 - 31.995 ppm07/15/2025 5:55 AM EDTHealthTrackRx at [facility] MYCOPLASMA URUDFQFSVV213.961 - 24.689 ppm07/15/2025 5:55 AM EDTHealthTrackRx at LabMedical Center Of Southern IndianaMYCOPLASMA GENITALIUMNot Sengpqyk06.961 - 24.689 ppm07/15/2025 5:55 AM EDTHealthTrackRx at LabPortSpecimen (Source)Anatomical Location / LateralityCollection Method / VolumeCollection TimeReceived TimeTissue 07/14/2025 9:54 AM EDT07/15/2025 1:25 AM EDT Narrative Authorizing ProviderResult TypeResult StatusAmy LourdesRegency Hospital CompanyAB BLOOD ORDERABLES Final ResultPerforming OrganizationAddressCity/State/ZIP CodePhone Number [facility] [address] [address] from Last 3 Months Insurance Care Teams Team MemberRelationshipSpecialtyStart DateEnd Renetta Poon MD [facility] - [facility] Lilibeth Reyes NP [address] [place] [address] PCP - [facility]08/11/24
--- OUTSIDE RECORDS SUMMARY | 2025-10-06 16:47 | XMS_ITS | Encounter Summary ---
Author Organization [facility] Address [address] [place] [address] Care Team Providers Care Supplier Quality Manager Name Role Phone Renetta Poon MD Primary Care Provider [phone] Lilibeth Reyes TRAFFIC I MANAGER Unavailable [phone] Encounter Details DateTypeDepartmentCare Team (Latest Contact Info)Qqveerptczx98/17/2025Patient Outreach [facility] [address] [place] [address] Dayna Go, MELI [address] [place] [address] Social History Tobacco UseTypesPacks/DayYears UsedDateSmoking Tobacco: NeverSmokeless [...] on one occasion?Never03/18/2024HQ-2 AnswerDate RecordedPatient Health Questionnaire-2 Uzvoc48911/27/2024 Estimated Date of NsqgkfyrIflvxjkxQao48/04/2025Based on UltrasoundSex and Gender InformationValueDate RecordedSex Assigned [...] 11:20 AM Dayna Morales LPNPatient Health Questionnaire-2 Lbbyk54811/27/2024 11:20 AM Dayna Morales LPN documented as [...] Plan of Treatment DateTypeDepartmentCare Team (Latest Contact Info)Gftwtjahswb97/22/2025 10:50 AM ESTPostpartum Visit [facility] [place] [facility] [address] [facility] [place] [address] Michael Robles DO [address] [facility] [address] [place] [address] documented as of this encounter Visit Diagnoses Not on filedocumented in this encounter Care Teams Team MemberRelationshipSpecialtyStart DateEnd Date Renetta Poon MD PCP - GeneralFamily Medicine03/19/23 Lilibeth Reyes NP [address] [facility] [place] [address] PCP - [facility]08/11/24documented as of this encounter
--- OUTSIDE RECORDS SUMMARY | 2025-10-06 16:47 | XMS_ITS | Clinical Summary ---
Author Organization [facility] Address [address], [address] [place] [address] Care Team Providers Care Cloth Shader Name Role Phone Renetta Poon MD Primary Care Provider [phone] Allergies Active AllergyReactionsCriticalityNoted DateCommentsBee VenomAnaphylaxisHigh 11/06/2023 Medications [...] ProblemNoted DateDiagnosed Date28 weeks gestation of /27/2023 Social History Tobacco UseTypesPacks/DayYears UsedDateSmoking Tobacco: NeverSmokeless Tobacco: NeverAlcohol UseStandard Drinks/WeekCommentsNever0 (1 standard drink = 0.6 oz pure alcohol)[facility] UtilitiesAnswerDate RecordedIn the past 12 months has the [employer], gas, oil, or water [employer] threatened to shut off services in your home?No5AUDIT-CAnswerDate RecordedQ1: How often do you have a drink containing alcohol?Never11/06/2023Q2: How many drinks containing alcohol do you have on a typical day when you are drinking?Patient does not drink11/06/2023Q3: How often do you have six or more drinks on one occasion?Never11/06/2023HQ-2 AnswerDate RecordedPHQ-9 Total Qrwmk831Hunger Vital SignAnswerDate RecordedWithin the past 12 months, [...] were you homeless or living in a retirement (including now)?No01/18/2025Food Insecurity AnswerDate RecordedWithin the past 12 months, you worried that your food would run out before you got the money to buymore.Within the past 12 months, the food you bought just didn't last and you didn't have money to get more.Interpersonal Safety Domain Source: IP Abuse ScreeningAnswerDate RecordedRead-Only, Retired: Physical GczihEuhwhe20/27/2023Read-Only, Retired: Verbal ZecuxIjwlra13/27/2023Read-Only, Retired: Emotional kjhprPpwcrf08/27/2023 Read-Only, Retired: Financial JjelvPlioxm28/27/2023Read-Only, Retired: Sexual tvkktQkojsg14/27/2023CommentsNoSex and Gender InformationValueDate RecordedSex Assigned at BirthNot on fileLegal KyjEighac88/08/2022 8:12 PM EST Gender IdentityNot on fileSexual OrientationNot on file Last Filed Vital Signs Vital SignReadingTime TakenCommentsBlood Eagkqdtc477/66001/18/2025 10:35 AM EDT Vxhoc325311/06/2023 8:55 PM JVRLdizkgypnrd91.9 ??C (98.4 ??F)11/06/2023 8:55 PM ESTRespiratory Giir807811/06/2023 8:55 PM ESTOxygen Uxqbzgkxhr37%11/06/2023 8:55 PM ESTInhaled Oxygen Concentration--Juhchh45.8 kg (123 lb)01/18/2025 10:35 AM AYHHwsula229.7 cm (5' 8 )01/18/2025 10:35 AM EDTBody Mass Index18.7001/18/2025 10:35 AM EDT Plan of Treatment Health MaintenanceDue DateLast DoneCommentsHIV pjkhhj7701/10/2019HPV vaccine (1 - 3-dose series)01/10/2019Chlamydia/GC tismyc3201/11/2020Meningococcal B vaccine (1 of 2 - Standard)2020Hepatitis C anlnne372Pap smear01/10/2025Flu vaccine (#1)06/11/2025OVID-19 Vaccine (1 - season)2025Depression Hczxib91603/08/2025, 01/18/2025DTaP/Tdap/Td vaccine (8 - Td or Tdap) 3101/02/2023, 05/04/2022, 05/06/2019, Additional history existsHepatitis B mydobchAyolfkknv32/12/2005, 2004, 2004Hib vaccineCompleted 02/21/2005, 2004, 2004, Additional history existsPneumococcal 0-49 years VaccineAged Out02/21/2005, 2004, 2004, Additional history existsNo longer eligible based on patient's age to complete this topic Measles,Mumps,Rubella (MMR) seuhlrnQzwgrnkzjzmt93/26/2019, 02/21/2005 Meningococcal (ACWY) vaccineAged Out05/06/2019No longer eligible based on patient's age to complete this topicPolio axmpimiEyfbgicao90/21/2019, 2004, 2004, Additional history existsVaricella vaccineCompleted 07/01/2019, 02/21/2005Hepatitis A vaccineAged OutNo longer eligible based on patient's age to complete this topic Insurance * Guarantor: Cristian MCCANN TypeRelation to PatientDate of BirthPhone Billing AddressPersonal/BissrvXhgyta[birth year][address] [address] * Guarantor: Cristian MCCANN TypeRelation to PatientDate of BirthPhone Billing AddressPersonal/IhtpvkZoesdq63/[birth year][address] [address] Advance Directives * Full Code (Latest Code Status on File) Date ActivatedDate EgvlicidcgxLeqyimnt53/27/2023 9:13 PM11/06/2023 11:39 PM Care Teams Team MemberRelationshipSpecialtyStart DateEnd Date Wonderly, Renetta Davidson MD [address] [place] [address] PCP - GeneralFamily Tvyizjyk12/27/23
--- OUTSIDE RECORDS SUMMARY | 2025-10-06 16:47 | XMS_ITS | Encounter Summary ---
Author Organization [facility] Address [address] [place] [address] Care Team Providers Care Community Leader Name Role Phone CleveRenetta MD Primary Care Provider [phone] Lilibeth Reyes CARDROOM SUPERVISOR Unavailable [phone] Encounter Details DateTypeDepartmentCare Team (Latest Contact Info)Nmkhndtrrcm01/12/2025amboo flowsheet [facility] [address] [facility] [address] Dayna Freed PA [address] [place], [facility] Social History Tobacco UseTypesPacks/DayYears UsedDateSmoking Tobacco: NeverSmokeless [...] on one occasion?Never03/18/2024HQ-2 AnswerDate RecordedPatient Health Questionnaire-2 Srjbl927 Estimated Date of JyzwstdvFjmrvxweEpz02/04/2025Based on UltrasoundSex and Gender InformationValueDate RecordedSex Assigned at BirthNot on fileLegal SexFemale 01/23/2023 6:34 PM EDTGender IdentityNot on fileSexual OrientationNot on file documented as of this encounter Plan of Treatment DateTypeDepartmentCare Team (Latest Contact Info)Awczporvxno63/ 10:50 AM ESTPostpartum Visit [facility] [address] [facility] [address] Michael Robles DO [address] [address] documented as of this encounter Visit Diagnoses Not on filedocumented in this encounter Care Teams Team MemberRelationshipSpecialtyStart DateEnd Date Renetta Poon MD PCP - Generalmi Medicine03/19/23 Lilibeth Reyes NP [address] [facility] [place] [address] PCP - [facility]08/11/24documented as of this encounter
--- OUTSIDE RECORDS SUMMARY | 2025-10-06 16:47 | XMS_ITS | Clinical Summary ---
Author Organization [employer] [facility] tem Address [id number] [place] [address] Care Team Providers Care Ad Compositor Name Role Phone Renetta Poon MD Primary Care Provider [phone] Allergies Active AllergyReactionsCriticalityNoted DateCommentsBee Venom Protein (Honey Bee)Anaphylaxis,OrwszptzVgfy65/04/2022 Medications MedicationSigDispense QuantityRefillsLast FilledStart DateEnd DateStatus norethindrone-e.estradioL-iron (11/30) 1 mg-20 mcg (21)/75 mg (7) per tablet Indications:Initiation of OCP (BCP)Take 1 tablet by mouth in the morning. 28 tablet 5Active Active Problems ProblemNoted DateDiagnosed DateIrregular nclyrt0311/26/2023 Resolved Problems ProblemNoted DateDiagnosed DateResolved DateNSVD (normal spontaneous vaginal delivery)Encounter for elective induction of labor01/21/2024 01/23/2024Normal labor/ weeks gestation of /Threatened labor, third tcewwyeqa57/14/2024 11/17/2024 Overview (12/25/2023): Celestone given 12/24/23 & 12/25/23 Iron deficiency anemia during /05/2025 Overview (11/03/2023): 11/03/23. Rx for PO Fe ordered. Reevaluate CBC in 4-6 weeks. Low lying placenta nos or without hemorrhage, second sermztmjv97/09/2023 11/17/2024 Overview (11/01/2023): 10/18/23 RESOLVED no further MFM follow up 09/20/[address] Machado RECOMMENDATION: 1. Anterior low-lying placenta seen on today's ultrasound. Patient denies any bleeding. 2. Pelvic rest advised. 3. Follow-up repeat evaluation of placental location between 32-34 weeks gestation at our [facility] remote office. 4. InCase low-lying placenta resolves term spontaneous vaginal delivery at her local hospital is anticipated. 5. InCase low-lying placenta does not resolved beyond 34 weeks gestation please offer primary her local hospital between 36-37 weeks. 6. A follow-up ultrasound and office visit was scheduled today. Short interval between pregnancies affecting in first trimester, kpjzfqwljy19/22/202301/05/2025 Overview (08/02/2023): 08/02/23 Her baby will be a year old the end of July 2022 Breast fed for 9 months (spontaneous vaginal delivery)/06/2023Normal labor07/17/2022 07/20/2022upervision of normal first , iwlotcuhwp26/15/202212/ Abnormal US/ Overview (01/26/2022): US on 01/25/22 showed free fluid in abdomen/ will rpt in 4 weeks per MFM request If fluid remains MFM discussed Nipps and TORCH studies Immunizations ImmunizationAdministration DatesNext HsxXXO2207/20/2022()Tdap101/02/2023,07/20/2022 (),05/04/20221732Gdliryqxj48/09/2022() Family History Medical HistoryRelationNameCommentsNo Known ProblemsBrother 1No [...] Score1 03/06/2024Edinburgh Depression ScaleAnswerDate RecordedEdinburgh Depression Scale Jzuur44103/06/2024The thought of harming myself has occurred to me.Never03/06/2024Housing InstabilityAnswerDate RecordedAre you worried or concerned that in the next two months you may not have stable housing that you own, rent or stay in as a part of a household?No08/02/2023hildcare AnswerDate RecordedDo problems getting child protection specialist make it difficult for you to work or study?No03/06/2024EmploymentAnswerDate RecordedEmploymentUnknown 04/22/2019Hunger ScreeningAnswerDate RecordedWithin the past 12 months we worried whether our food would run out before we got money to buy more.Never True11/17/2024Within the past 12 months the food we bought just didn't last and we didn't have money to get more.Never True11/17/2024CommentsNoSex and Gender InformationValueDate RecordedSex Assigned at BirthNot on fileLegal Sex Byqcyn0406/16/2015 12:01 PM EDTGender IdentityNot on fileSexual OrientationNot on file Last Filed Vital Signs Vital SignReadingTime TakenCommentsBlood Rmunuglm985/6401 11:09 AM EST Vlrdo441801/23/2024 11:57 AM ZMCFegdcufqmos47.7 ??C (98.1 ??F)01/23/2024 11:57 AM EDTRespiratory Nfhf772701/23/2024 11:57 AM EDTOxygen Rmimzuoflj420%01/22/2024 6:00 AM EDTInhaled Oxygen Concentration--Ohazpx42.2 kg (126 lb 3.2 oz)05/01/2024 11:27 AM OEAYjlroc183.7 cm (5' 7.99 )05/01/2024 11:27 AM EDTBody Mass Index19.19 05/01/2024 11:27 AM EDT Plan of Treatment Health MaintenanceDue DateLast DoneCommentsChlamydia Vnzrawxue46/13/2025 12/24/2023, 08/02/2023, 01/12/2022ap Smear01/10/2025Depression Screening , 02/07/2024dult BMI Yajhuhwcx74/Influenza Ehvxdvv9207/12/2025Tobacco Xyqryosai12DTaP,Tdap and Td Vaccines (8 - Td or Tdap), 05/04/2022, 05/06/2019, Additional history exists Medical Devices Not on file Procedures Procedure NamePriorityDate/TimeAssociated DiagnosisCommentsCHLAMYDIA/GC BY PCR DONNY JHZHLYYV24/13/2024 5:56 PM EST from Last 3 Months or Most Recently Relevant to Health Maintenance Results * Chlamydia/GC by PCR Donny Swab (12/24/2023 5:56 PM EST)ComponentValueRef Range Test MethodAnalysis TimePerformed AtPathologist SignatureSpecimen source AHVLYXHL31/13/2024 8:53 PM [facility] DNA PCR NegativeNegative^Tbyjduhs51/14/2024 11:42 AM [facility] Comment: ? Chlamydia trachomatis not detected by nucleic acid amplification. This does not exclude the possibility of infection because results are dependent on adequate specimen collection. ? Gonorrhea DNA PCRNegativeNegative^Gtwsahey05/14/2024 11:42 AM [facility]: ? Neisseria gonorrhoeae not detected by nucleic acid amplification. This does not exclude the possibility of infection because results are dependent on adequate specimen collection. ? Specimen (Source)Anatomical Location / LateralityCollection Method / Volume Collection TimeReceived ZfsbVJVR99/13/2024 5:56 PM EST12/24/2023 8:53 PM EST Narrative Authorizing ProviderResult TypeResult StatusStepab Doe APRN-CNM MICROBIOLOGY - GENERAL ORDERABLESFinal ResultPerforming OrganizationAddress City/State/ZIP CodePhone Number [facility] [address] [place] [address] [facility] [address] [facility] [place] [address] from Last 3 Months or Most Recently Relevant to Health Maintenance Insurance Advance Directives * Full Code (Latest Code Status on File) Date ActivatedDate InactivatedComments01/22/2024 7:39 AM01/23/2024 6:30 PM * Full Code Date ActivatedDate InactivatedComments12/24/2023 8:10 12/24/2023 11:30 PM * Full Code Date ActivatedDate InactivatedComments07/17/2022 6:24 PM07/20/2022 2:15 PM Care Teams Team MemberRelationshipSpecialtyStart DateEnd Date Renetta Poon MD [address] [place] [address] PCP - GeneralFamily Medicine01/12/22
--- OUTSIDE RECORDS SUMMARY | 2025-10-06 16:47 | XMS_ITS | Encounter Summary ---
Author Organization [facility] Address [address] [place] [address] Care Team Providers Care Director Print Name Role Phone CleveRenetta MD Primary Care Provider [phone] Lilibeth Reyes GLASS BENDER Unavailable [phone] Encounter Details DateTypeDepartmentCare Team (Latest Contact Info)Bqzpbdgzchs83/19/2025bstract [facility] [address] [place] [address] Michael Robles DO [address] [place], [facility]11 Social History Tobacco UseTypesPacks/DayYears UsedDateSmoking Tobacco: NeverSmokeless [...] on one occasion?Never03/18/2024HQ-2 AnswerDate RecordedPatient Health Questionnaire-2 Pxpdi70911/27/2024 Estimated Date of AzjjozvuXxuderibXra27/04/2025Based on UltrasoundSex and Gender InformationValueDate RecordedSex Assigned at BirthNot on fileLegal SexFemale 01/23/2023 6:34 PM EDTGender IdentityNot on fileSexual OrientationNot on file documented as of this encounter Plan of Treatment DateTypeDepartmentCare Team (Latest Contact Info)Bcweuoopzip20/22/2025 10:50 AM ESTPostpartum Visit [facility] [address] [place] [address] Michael Robles DO [address] [place] [address] documented as of this encounter Visit Diagnoses Not on filedocumented in this encounter Care Teams Team MemberRelationshipSpecialtyStart DateEnd Date Renetta Poon MD PCP - GeneralFami Medicine03/19/23 Lilibeth Reyes NP [address] [facility] [place] [address] PCP - [facility]08/11/24documented as of this encounter
--- OUTSIDE RECORDS SUMMARY | 2025-10-06 16:47 | XMS_ITS | Encounter Summary ---
Author Organization [facility] Address [address] [place] [address] Care Team Providers Care Airplane Designer Name Role Phone CleveRenetta MD Primary Care Provider [phone] Lilibeth Reyes CHIEF MEDIA OFFICER Unavailable [phone] Encounter Details DateTypeDepartmentCare Team (Latest Contact Info)Aqaatuqmlpq81/19/2025amboo flowsheet [facility] [address] [place] [address] Michael Robles DO [address] [place], [facility] Social History Tobacco UseTypesPacks/DayYears UsedDateSmoking Tobacco: [...] on one occasion?Never03/18/2024HQ-2 AnswerDate RecordedPatient Health Questionnaire-2 Wksba37711/27/2024 Estimated Date of GmxtfyyxCzeobyrrWig13/04/2025Based on UltrasoundSex and Gender InformationValueDate RecordedSex Assigned at BirthNot on fileLegal SexFemale 01/23/2023 6:34 PM EDTGender IdentityNot on fileSexual OrientationNot on file documented as of this encounter Plan of Treatment DateTypeDepartmentCare Team (Latest Contact Info)Fiaciehhndv63/22/2025 10:50 AM ESTPostpartum Visit [facility] [address] [place] [address] Michael Robles DO [address] [place] [address] documented as of this encounter Visit Diagnoses Not on filedocumented in this encounter Care Teams Team MemberRelationshipSpecialtyStart DateEnd Date Renetta Poon MD PCP - Generalmi Medicine03/19/23 Lilibeth Reyes NP [address] [address] PCP - [facility]08/11/24documented as of this encounter
== END 2025-10-03 13:50 | disposition home or self-care (01) | DRG 560 ==
PROVIDERS: Admitting Provider Obstetrics & Gynecology Gynecology; Visit Provider Obstetrics & Gynecology Gynecology
DX: O99.824 Streptococcus B carrier state complicating childbirth (principal); O76 Abnormality in fetal heart rate and rhythm complicating labor and delivery; Z3A.38 38 weeks gestation of pregnancy; Z37.0 Single live birth
CPT/HCPCS: 36415; 51702; 59025; 59050; 59410; 80307; 81001; 85027; 86850; 86900; 86901; 87086; J0290; J2795